=== PATIENT | female | born 1940 | race Asian ===

== ENCOUNTER 2016-04-27 00:16 | Inpatient (IN) | payer MEDICARE, OTHER ==
[~2016-04-27] VITALS: Ht 152.4 cm; Wt 61.5 kg
[~2016-04-27 00:16] MED LIST: CEPH500 PO; DILT120C3 PO; DSS100 PO; GLIM2 PO; LOVA20 PO; MECL-129 PO; METF500T4 PO; RIVA15T PO; VALS80TA2 PO
[2016-04-27] MEDS ORDERED: METO-323 PO (00:22)
[2016-04-27] MEDS ORDERED: GLIM2 PO (00:22)
[2016-04-27] MEDS ORDERED: OMEP20 PO (00:22)
[2016-04-27] MEDS ORDERED: SITA1TBM4 PO (00:22)
[2016-04-27 00:32] LABS: GLUCOSE,POINT OF CARE 244 MG/DL (70-110)
[2016-04-27 00:40] LABS: BASOPHILS # (AUTO) 0.05 K/uL (0.00-0.20); BASOPHILS % (AUTO) 0.3 % (0.0-2.0); EOSINOPHILS # (AUTO) 0.15 K/uL (0.00-0.70); EOSINOPHILS % (AUTO) 1.04 % (1.0-6.0); HEMATOCRIT 45.4 % (36-46); HEMOGLOBIN 14.5 g/dL (12.0-16.0); LYMPHOCYTES # (AUTO) 3.6 K/uL (1.0-4.8); LYMPHOCYTES % (AUTO) 24.3 % (22.0-44.0); MEAN CORPUSCULAR HEMOGLOBIN 29.9 pg (26.0-34.0); MEAN CORPUSCULAR HGB CONC 31.9 G/dL (31.0-37.0); MEAN CORPUSCULAR VOLUME 94 fL (80-100); MONOCYTES # (AUTO) 0.8 K/uL (0.1-1.0); MONOCYTES % (AUTO) 5.1 % (2.0-9.0); NEUTROPHILS # (AUTO) 10.3 K/uL (1.8-7.7); NEUTROPHILS % (AUTO) 69.3 % (40.0-70.0); PLATELET COUNT (AUTO) 209 K/uL (150-450); RED BLOOD CELL COUNT(AUTO) 4.85 MIL/uL (4.00-5.20); RED CELL DISTRIBUTION WIDTH 14.6 % (11.5-14.5); WHITE BLOOD COUNT (AUTO) 14.9 K/uL (4.5-11.0)
[2016-04-27 00:49] LABS: ANION GAP 11 mmol/L (8-16); CALCIUM, TOTAL 8.9 mg/dL (8.8-10.5); CARBON DIOXIDE 26 mmol/L (22-29); CHLORIDE 100 mmol/L (98-107); CREATININE 1.03 mg/dL (0.60-1.30); GLOMERULAR FILTR. RATE CALC 52 mL/min (>60); POTASSIUM 3.9 mmol/L (3.5-5.1); SODIUM SERUM 137 mmol/L (136-145); UREA NITROGEN, BLOOD 15 mg/dL (7-18)
[2016-04-27 00:52] LABS: PROTHROMBIN TIME 10.8 SEC (9.4-11.6)
[2016-04-27 00:55] LABS: ALANINE AMINOTRANSFERASE 21 U/L (12-78); ALBUMIN 3.6 g/dL (3.4-5.0); ASPARTATE AMINOTRANSFERASE 13 U/L (15-37); BILIRUBIN,TOTAL 0.4 mg/dL (0.1-1.0); CREATINE KINASE, TOTAL 22 U/L (26-192); TOTAL PROTEIN, SERUM 7.7 g/dL (6.4-8.2)
[2016-04-27 01:24] LABS: B-TYPE NATRIURETIC PEPTIDE 211 pg/mL (0-100)
[2016-04-27] MEDS ORDERED: IPRATROPIUM BROMIDE 0.5 MG/2.5 ML NEB SOLUTION NEB ONE (04:15)
[2016-04-27] MEDS ORDERED: ALBUTEROL SULFATE 5 MG/ML 20 ML NEB SOLN [BULK] NEB ONE (04:15)
[2016-04-27 05:36] VITALS: BP 142/92
[2016-04-27] MEDS ORDERED: DILTIAZEM HCL 5 MG/ML 5 ML VIAL IVP ONE ×2 (05:45→08:30)
[2016-04-27] MEDS: NITROGLYCERIN 2% (1 GM=INCH) PACKET TP SCH ×3 (06:20→17:30)
[2016-04-27] MEDS ORDERED: DEXTROSE 50%-WATER 25 GM/50 ML SYRINGE IVP PRN (06:30)
[2016-04-27] MEDS: IBUPROFEN 600 MG TABLET PO PRN (06:52)
[2016-04-27] MEDS: INSULIN ASPART 100 UNITS/ML SQ PRN ×4 (07:00→22:00)
[2016-04-27 07:50] VITALS: BP 127/70
[2016-04-27] MEDS ORDERED: AMIODARONE HCL 150 MG in DEXTROSE 5%-WATER 97 ML IV ONE (08:50)
[2016-04-27] MEDS ORDERED: AMIODARONE HCL 360 MG in DEXTROSE 5%-WATER 242.8 ML IV ONE (09:00)
[2016-04-27] MEDS ORDERED: ONDANSETRON HCL 4 MG/2 ML VIAL IVP PRN (09:15)
[2016-04-27] MEDS ORDERED: 0.9% SODIUM CHLORIDE 10 ML SYRINGE IVP PRN ×2 (09:15)
[2016-04-27] MEDS ORDERED: ZOLPIDEM TARTRATE 5 MG TABLET PO PRN (09:15)
[2016-04-27] MEDS ORDERED: SODIUM CHLORIDE 0.9% 250 ML IV ONE (10:37)
[2016-04-27] MEDS: INSULIN GLARGINE,HUM.REC.ANLOG 100 UNITS/ML SQ SCH (10:55)
[2016-04-27 11:17] VITALS: BP 108/76
[2016-04-27 11:46] LABS: GLUCOSE COMMENT 1 Received Meds; GLUCOSE,POINT OF CARE 250 MG/DL (70-110)
[2016-04-27] MEDS ORDERED: DIGOXIN 250 MCG/ML 2 ML AMP IVP ONE (12:00)
[2016-04-27] MEDS: DIGOXIN 250 MCG/ML 2 ML AMP IVP SCH ×2 (12:11→17:29)
[2016-04-27] MEDS: CefTRIAXone 1 GM/DEXTROSE 50 ML IV SCH (14:28)
[2016-04-27] MEDS: MethylPREDNISolone SOD SUCC 125 MG/2 ML VIAL IVP SCH ×2 (14:36→19:04)
[2016-04-27] MEDS ORDERED: AMIODARONE HCL 540 MG in DEXTROSE 5%-WATER 239.2 ML IV ONE (15:00)
[2016-04-27 15:53] VITALS: BP 111/75
[2016-04-27] MEDS ORDERED: HEPARIN SODIUM,PORCINE 5,000 UNITS/ML VIAL IVP PRN (16:00)
[2016-04-27] MEDS: DOCUSATE SODIUM 250 MG CAPSULE PO SCH ×2 (16:06→21:24)
[2016-04-27] MEDS: BUDESONIDE 0.5 MG/2 ML NEB SOLUTION NEB SCH ×2 (16:10→20:47)
[2016-04-27] MEDS: HEPARIN SODIUM,PORCINE 5,000 UNITS/ML VIAL IVP ONE ×2 (16:12→17:24)
[2016-04-27 16:13] LABS: BASOPHILS % (AUTO) 0.1 % (0.0-2.0); EOSINOPHILS % (AUTO) 0 % (1.0-6.0); HEMOGLOBIN 13.7 g/dL (12.0-16.0); LYMPHOCYTES # (AUTO) 0.6 K/uL (1.0-4.8); LYMPHOCYTES % (AUTO) 4.4 % (22.0-44.0); MEAN CORPUSCULAR HGB CONC 31.9 G/dL (31.0-37.0); MEAN CORPUSCULAR VOLUME 94 fL (80-100); MONOCYTES # (AUTO) 0.2 K/uL (0.1-1.0); MONOCYTES % (AUTO) 1.7 % (2.0-9.0); NEUTROPHILS # (AUTO) 13.2 K/uL (1.8-7.7); PLATELET COUNT (AUTO) 196 K/uL (150-450); RED BLOOD CELL COUNT(AUTO) 4.57 MIL/uL (4.00-5.20); RED CELL DISTRIBUTION WIDTH 14.5 % (11.5-14.5); WHITE BLOOD COUNT (AUTO) 14.1 K/uL (4.5-11.0)
[2016-04-27 16:17] LABS: NEUTROPHILS % (AUTO) 93.8 % (40.0-70.0)
[2016-04-27 16:27] LABS: PROTHROMBIN TIME 10.8 SEC (9.4-11.6)
[2016-04-27] MEDS ORDERED: LIDOCAINE HCL/PF 2% 5 ML VIAL IM ONE (16:44)
[2016-04-27] MEDS ORDERED: PROPOFOL 1% 20 ML VIAL IVP ONE (16:44)
[2016-04-27 17:22] LABS: GLUCOSE COMMENT 1 Received Meds; GLUCOSE,POINT OF CARE 248 MG/DL (70-110)
[2016-04-27] MEDS: HEPARIN SODIUM 25000 UNITS/D5W 250 ML IV PRN (17:24)
[2016-04-27] MEDS: GLIMEPIRIDE 2 MG TABLET PO SCH (17:30)
[2016-04-27] MEDS: VALSARTAN 80 MG TABLET PO SCH ×2 (18:45→19:03)
[2016-04-27] MEDS: HydrALAZINE HCL 20 MG/ML VIAL IVP PRN (19:03)
[2016-04-27] MEDS: METOPROLOL SUCCINATE 25 MG ER TABLET PO SCH ×2 (19:03→21:24)
[2016-04-27 20:22] VITALS: BP 181/103
[2016-04-27] MEDS ORDERED: BUDESONIDE 0.5 MG/2 ML NEB SOLUTION NEB SCH (21:00)
[2016-04-27] MEDS ORDERED: METOPROLOL SUCCINATE 25 MG ER TABLET PO SCH (21:00)
[2016-04-27] MEDS ORDERED: METOPROLOL TARTRATE 25 MG TABLET PO SCH (21:00)
[2016-04-27] MEDS: ATORVASTATIN CALCIUM 20 MG TABLET PO SCH (21:24)
[2016-04-27 22:28] VITALS: BP 154/88
[2016-04-28] VITALS (9 sets, daily range): BP systolic 107–170; BP diastolic 67–105
[2016-04-28] MEDS: DIGOXIN 250 MCG/ML 2 ML AMP IVP SCH (00:21)
[2016-04-28] MEDS: MethylPREDNISolone SOD SUCC 125 MG/2 ML VIAL IVP SCH ×5 (00:21→23:56)
[2016-04-28] MEDS: NITROGLYCERIN 2% (1 GM=INCH) PACKET TP SCH ×5 (00:22→23:56)
[2016-04-28] MEDS: HEPARIN SODIUM,PORCINE 5,000 UNITS/ML VIAL IVP PRN ×2 (01:14→17:30)
[2016-04-28] MEDS: HydrALAZINE HCL 20 MG/ML VIAL IVP PRN (01:14)
[2016-04-28 03:06] LABS: GLUCOSE COMMENT 1 Received Meds; GLUCOSE,POINT OF CARE 311 MG/DL (70-110)
[2016-04-28 06:36] LABS: GLUCOSE COMMENT 1 Received Meds; GLUCOSE,POINT OF CARE 272 MG/DL (70-110)
[2016-04-28] MEDS: INSULIN ASPART 100 UNITS/ML SQ PRN ×4 (06:37→21:16)
[2016-04-28] MEDS: IBUPROFEN 600 MG TABLET PO PRN (06:45)
[2016-04-28 08:23] LABS: EOSINOPHILS % (AUTO) 0 % (1.0-6.0); HEMATOCRIT 43.3 % (36-46); LYMPHOCYTES # (AUTO) 1.8 K/uL (1.0-4.8); LYMPHOCYTES % (AUTO) 9.1 % (22.0-44.0); MEAN CORPUSCULAR HGB CONC 32.3 G/dL (31.0-37.0); MEAN CORPUSCULAR VOLUME 93 fL (80-100); MONOCYTES # (AUTO) 0.3 K/uL (0.1-1.0); MONOCYTES % (AUTO) 1.4 % (2.0-9.0); NEUTROPHILS # (AUTO) 17.6 K/uL (1.8-7.7); PLATELET COUNT (AUTO) 213 K/uL (150-450); RED BLOOD CELL COUNT(AUTO) 4.66 MIL/uL (4.00-5.20); RED CELL DISTRIBUTION WIDTH 14.4 % (11.5-14.5); WHITE BLOOD COUNT (AUTO) 19.7 K/uL (4.5-11.0)
[2016-04-28 08:24] LABS: NEUTROPHILS % (AUTO) 89.5 % (40.0-70.0)
[2016-04-28 08:33] LABS: INR 1.1 (0.9-1.1); PROTHROMBIN TIME 11.2 SEC (9.4-11.6)
[2016-04-28 08:41] LABS: HEMOGLOBIN A1C 9.3 % (4.5-6.2)
[2016-04-28 08:43] LABS: RBC MORPHOLOGY COMMENT NORMAL RBC MORPH
[2016-04-28 08:45] LABS: CHOL/HDL RATIO 3.7 (3.9-5.7); THYROID STIMULATING HORMONE 0.37 uIU/mL (0.36-3.74)
[2016-04-28 08:52] LABS: ABG A-A DIFF O2 296.9 mmHg (10-20.0); ABG BASE EXCESS -3.7 mmol/L (-2.0-3.0); ABG OXYHEMOGLOBIN 96.3 % (94.0-100.0); ABG PCO2 35 mmHg (35-45); ABG PH 7.397 (7.35-7.450); ALLEN TEST, BLOOD GAS Positive; IPAP, BG 14 cm H2O; TEMPERATURE, FAHRENHEIT, BG 98.6 FAHREN (96.0-98.6)
[2016-04-28] MEDS ORDERED: AMIODARONE HCL 750 MG in DEXTROSE 5%-WATER 485 ML IV SCH (09:00)
[2016-04-28] MEDS: DOCUSATE SODIUM 250 MG CAPSULE PO SCH ×3 (09:00→20:36)
[2016-04-28] MEDS: BUDESONIDE 0.5 MG/2 ML NEB SOLUTION NEB SCH ×3 (09:50→21:19)
[2016-04-28] MEDS: HEPARIN SODIUM 25000 UNITS/D5W 250 ML IV PRN ×2 (10:05→17:25)
[2016-04-28] MEDS: INSULIN GLARGINE,HUM.REC.ANLOG 100 UNITS/ML SQ SCH (10:08)
[2016-04-28] MEDS ORDERED: AZITHROMYCIN 500 MG/NS 250 ML IV SCH (11:00)
[2016-04-28 11:21] LABS: GLUCOSE COMMENT 1 Received Meds; GLUCOSE,POINT OF CARE 193 MG/DL (70-110)
[2016-04-28] MEDS: LISINOPRIL 5 MG TABLET PO SCH (11:46)
[2016-04-28] MEDS: METOPROLOL SUCCINATE 25 MG ER TABLET PO SCH ×2 (11:46→20:36)
[2016-04-28] MEDS: GLIMEPIRIDE 2 MG TABLET PO SCH ×2 (11:46→17:40)
[2016-04-28] MEDS: VALSARTAN 80 MG TABLET PO SCH (11:46)
[2016-04-28] MEDS: CefTRIAXone 1 GM/DEXTROSE 50 ML IV SCH (11:47)
[2016-04-28 14:46] LABS: GLUCOSE,BODY FLUID 221 mg/dL; LDH,BODY FLUID 54 U/L
[2016-04-28 15:01] LABS: APPEARANCE,UNSPUN,BODY FLUID HAZY (CLEAR); COLOR,BODY FLUID LT YELLOW (LT YELLOW)
[2016-04-28] MEDS: ATORVASTATIN CALCIUM 20 MG TABLET PO SCH (20:36)
[2016-04-28 21:07] LABS: GLUCOSE COMMENT 1 Received Meds; GLUCOSE,POINT OF CARE 217 MG/DL (70-110)
[2016-04-29 00:09] VITALS: BP 130/75
[2016-04-29 03:14] VITALS: BP 130/77
[2016-04-29] MEDS ORDERED: DIGOXIN 250 MCG/ML 2 ML AMP IVP ONE ×2 (03:45→10:15)
[2016-04-29] MEDS ORDERED: AMIODARONE HCL 360 MG in DEXTROSE 5%-WATER 242.8 ML IV ONE (03:45)
[2016-04-29] MEDS ORDERED: AMIODARONE HCL 150 MG in DEXTROSE 5%-WATER 97 ML IV ONE (03:45)
[2016-04-29 05:01] LABS: INFLUENZA TYPE B NEGATIVE FOR TYPE B (NEGATIVE)
[2016-04-29] MEDS: MethylPREDNISolone SOD SUCC 125 MG/2 ML VIAL IVP SCH ×3 (06:07→17:42)
[2016-04-29] MEDS: NITROGLYCERIN 2% (1 GM=INCH) PACKET TP SCH ×3 (06:08→17:42)
[2016-04-29] MEDS: INSULIN ASPART 100 UNITS/ML SQ PRN ×4 (06:15→22:01)
[2016-04-29 07:38] VITALS: BP 118/63
[2016-04-29] MEDS: VALSARTAN 80 MG TABLET PO SCH (08:08)
[2016-04-29] MEDS: GLIMEPIRIDE 2 MG TABLET PO SCH ×2 (08:09→17:41)
[2016-04-29] MEDS: METOPROLOL SUCCINATE 25 MG ER TABLET PO SCH ×2 (08:09→20:16)
[2016-04-29] MEDS: LISINOPRIL 5 MG TABLET PO SCH (08:09)
[2016-04-29] MEDS: DOCUSATE SODIUM 250 MG CAPSULE PO SCH ×3 (08:09→20:20)
[2016-04-29] MEDS: INSULIN GLARGINE,HUM.REC.ANLOG 100 UNITS/ML SQ SCH (08:12)
[2016-04-29 08:26] LABS: GLUCOSE,POINT OF CARE 233 MG/DL (70-110)
[2016-04-29 08:35] LABS: APPEARANCE,URINE CLEAR (CLEAR); GLUCOSE, URINE (UA) NEGATIVE (NEGATIVE); KETONES,URINE NEGATIVE (NEGATIVE); LEUKOCYTE ESTERASE ,URINE NEGATIVE (NEGATIVE); OCCULT BLOOD,URINE NEGATIVE (NEGATIVE); PROTEIN,URINE TRACE (NEGATIVE)
[2016-04-29 08:37] LABS: ADD UA MICROSCOPIC NO
[2016-04-29 08:40] LABS: TOTAL PROTEIN, SERUM 6.9 g/dL (6.4-8.2)
[2016-04-29 08:50] LABS: CREATININE 1.04 mg/dL (0.60-1.30)
[2016-04-29 09:04] LABS: ALBUMIN 3.2 g/dL (3.4-5.0); BILIRUBIN,TOTAL 0.6 mg/dL (0.1-1.0); CALCIUM, TOTAL 8.9 mg/dL (8.8-10.5); POTASSIUM 3.7 mmol/L (3.5-5.1); TOTAL PROTEIN, SERUM 6.9 g/dL (6.4-8.2)
[2016-04-29 09:11] LABS: PROCALCITONIN (PCT) 0.18 ng/mL (<0.50)
[2016-04-29] MEDS: BUDESONIDE 0.5 MG/2 ML NEB SOLUTION NEB SCH ×3 (09:29→20:42)
[2016-04-29] MEDS ORDERED: AMIODARONE HCL 540 MG in DEXTROSE 5%-WATER 239.2 ML IV ONE (09:45)
[2016-04-29] MEDS ORDERED: SODIUM CHLORIDE 0.9% 250 ML IV ONE (10:42)
[2016-04-29] MEDS: CHOLECALCIFEROL (VIT D3) 2,000 UNITS TABLET PO SCH (10:44)
[2016-04-29] MEDS: DOXYCYCLINE 100 MG in DEXTROSE 5%-WATER 100 ML IV SCH ×2 (10:44→20:23)
[2016-04-29 11:03] VITALS: BP 134/68
[2016-04-29 11:16] LABS: GLUCOSE COMMENT 1 Received Meds; GLUCOSE,POINT OF CARE 207 MG/DL (70-110)
[2016-04-29] MEDS ORDERED: *CLINICAL-RX DOSING [ENTER DRUG IN COMMENTS] CLINICAL ONE (11:30)
[2016-04-29] MEDS: CefTRIAXone 1 GM/DEXTROSE 50 ML IV SCH (12:24)
[2016-04-29] MEDS: RIVAROXABAN 15 MG TABLET PO SCH (13:56)
[2016-04-29] MEDS ORDERED: METOPROLOL SUCCINATE 25 MG ER TABLET PO ONE (14:00)
[2016-04-29 15:11] VITALS: BP 135/97
[2016-04-29] MEDS ORDERED: RIVAROXABAN 15 MG TABLET PO SCH (17:00)
[2016-04-29 19:21] VITALS: BP 133/70
[2016-04-29] MEDS: ATORVASTATIN CALCIUM 20 MG TABLET PO SCH (20:16)
[2016-04-29 20:31] LABS: GLUCOSE COMMENT 1 Received Meds; GLUCOSE,POINT OF CARE 205 MG/DL (70-110)
[2016-04-29 20:36] LABS: GLUCOSE COMMENT 1 Received Meds; GLUCOSE,POINT OF CARE 243 MG/DL (70-110)
[2016-04-30] VITALS (7 sets, daily range): BP systolic 108–140; BP diastolic 63–90
[2016-04-30] MEDS: MethylPREDNISolone SOD SUCC 125 MG/2 ML VIAL IVP SCH ×4 (00:12→17:46)
[2016-04-30] MEDS: NITROGLYCERIN 2% (1 GM=INCH) PACKET TP SCH ×4 (00:14→17:46)
[2016-04-30] MEDS ORDERED: AMIODARONE HCL 750 MG in DEXTROSE 5%-WATER 485 ML IV SCH (03:35)
[2016-04-30] MEDS: INSULIN ASPART 100 UNITS/ML SQ PRN ×4 (06:20→21:28)
[2016-04-30 07:03] LABS: EOSINOPHILS % (AUTO) 0 % (1.0-6.0); HEMATOCRIT 36.7 % (36-46); HEMOGLOBIN 11.8 g/dL (12.0-16.0); LYMPHOCYTES # (AUTO) 0.8 K/uL (1.0-4.8); LYMPHOCYTES % (AUTO) 4.3 % (22.0-44.0); MEAN CORPUSCULAR HEMOGLOBIN 30.3 pg (26.0-34.0); MEAN CORPUSCULAR HGB CONC 32.2 G/dL (31.0-37.0); MEAN CORPUSCULAR VOLUME 94 fL (80-100); MONOCYTES # (AUTO) 0.5 K/uL (0.1-1.0); MONOCYTES % (AUTO) 2.6 % (2.0-9.0); NEUTROPHILS # (AUTO) 17.4 K/uL (1.8-7.7); PLATELET COUNT (AUTO) 180 K/uL (150-450); RED CELL DISTRIBUTION WIDTH 14.6 % (11.5-14.5); WHITE BLOOD COUNT (AUTO) 18.7 K/uL (4.5-11.0)
[2016-04-30 07:16] LABS: GLUCOSE COMMENT 1 Received Meds; GLUCOSE,POINT OF CARE 231 MG/DL (70-110)
[2016-04-30 07:20] LABS: NEUTROPHILS % (AUTO) 93.1 % (40.0-70.0)
[2016-04-30 07:20] LABS: GLUCOSE COMMENT 1 Received Meds; GLUCOSE,POINT OF CARE 310 MG/DL (70-110)
[2016-04-30 07:30] LABS: ALANINE AMINOTRANSFERASE 23 U/L (12-78); ALBUMIN 2.9 g/dL (3.4-5.0); ANION GAP 7 mmol/L (8-16); ASPARTATE AMINOTRANSFERASE 13 U/L (15-37); BILIRUBIN,TOTAL 0.3 mg/dL (0.1-1.0); CALCIUM, TOTAL 8.5 mg/dL (8.8-10.5); CARBON DIOXIDE 27 mmol/L (22-29); CHLORIDE 104 mmol/L (98-107); CREATININE 0.82 mg/dL (0.60-1.30); GLOMERULAR FILTR. RATE CALC > 60 mL/min (>60); POTASSIUM 3.9 mmol/L (3.5-5.1); SODIUM SERUM 138 mmol/L (136-145); UREA NITROGEN, BLOOD 40 mg/dL (7-18)
[2016-04-30 07:31] LABS: GLUCOSE COMMENT 1 Received Meds; GLUCOSE,POINT OF CARE 191 MG/DL (70-110)
[2016-04-30] MEDS: GLIMEPIRIDE 2 MG TABLET PO SCH ×2 (08:08→17:46)
[2016-04-30] MEDS: DOCUSATE SODIUM 250 MG CAPSULE PO SCH ×4 (08:09→21:07)
[2016-04-30] MEDS: VALSARTAN 80 MG TABLET PO SCH (08:09)
[2016-04-30] MEDS: DOXYCYCLINE 100 MG in DEXTROSE 5%-WATER 100 ML IV SCH ×2 (08:09→21:07)
[2016-04-30] MEDS: DIGOXIN 125 MCG TABLET PO SCH (08:09)
[2016-04-30] MEDS: LISINOPRIL 5 MG TABLET PO SCH (08:10)
[2016-04-30] MEDS: METOPROLOL SUCCINATE 25 MG ER TABLET PO SCH ×2 (08:10→21:07)
[2016-04-30] MEDS: CHOLECALCIFEROL (VIT D3) 2,000 UNITS TABLET PO SCH (08:10)
[2016-04-30] MEDS: INSULIN GLARGINE,HUM.REC.ANLOG 100 UNITS/ML SQ SCH (08:27)
[2016-04-30 08:29] LABS: RBC MORPHOLOGY COMMENT NORMAL RBC MORPH
[2016-04-30] MEDS: BUDESONIDE 0.5 MG/2 ML NEB SOLUTION NEB SCH ×3 (09:51→20:09)
[2016-04-30] MEDS: CefTRIAXone 1 GM/DEXTROSE 50 ML IV SCH (10:31)
[2016-04-30] MEDS ORDERED: FUROSEMIDE 20 MG/2 ML VIAL IVP ONE (10:45)
[2016-04-30 12:32] LABS: HEPATITIS Bs ANTIGEN SCREEN P Positive (Negative)
[2016-04-30 15:35] LABS: EOSINOPHILS % (AUTO) 0 % (1.0-6.0); HEMOGLOBIN 11.7 g/dL (12.0-16.0); LYMPHOCYTES # (AUTO) 0.8 K/uL (1.0-4.8); LYMPHOCYTES % (AUTO) 4.1 % (22.0-44.0); MEAN CORPUSCULAR HGB CONC 31.7 G/dL (31.0-37.0); MEAN CORPUSCULAR VOLUME 94 fL (80-100); MONOCYTES # (AUTO) 0.6 K/uL (0.1-1.0); MONOCYTES % (AUTO) 3.4 % (2.0-9.0); NEUTROPHILS # (AUTO) 17.7 K/uL (1.8-7.7); PLATELET COUNT (AUTO) 184 K/uL (150-450); RED BLOOD CELL COUNT(AUTO) 3.92 MIL/uL (4.00-5.20); RED CELL DISTRIBUTION WIDTH 15.1 % (11.5-14.5); WHITE BLOOD COUNT (AUTO) 19.1 K/uL (4.5-11.0)
[2016-04-30 15:37] LABS: NEUTROPHILS % (AUTO) 92.5 % (40.0-70.0)
[2016-04-30] MEDS: RIVAROXABAN 15 MG TABLET PO SCH (15:38)
[2016-04-30 15:46] LABS: INR 1.1 (0.9-1.1)
[2016-04-30] MEDS: PANTOPRAZOLE SODIUM 40 MG/VIAL IVP SCH (21:07)
[2016-04-30] MEDS: ATORVASTATIN CALCIUM 20 MG TABLET PO SCH (21:07)
[2016-05-01] VITALS (10 sets, daily range): BP systolic 112–144; BP diastolic 63–78
[2016-05-01] MEDS: NITROGLYCERIN 2% (1 GM=INCH) PACKET TP SCH ×4 (00:48→17:38)
[2016-05-01] MEDS: MethylPREDNISolone SOD SUCC 125 MG/2 ML VIAL IVP SCH ×4 (00:48→17:38)
[2016-05-01] MEDS: GLIMEPIRIDE 2 MG TABLET PO SCH ×2 (08:00→17:38)
[2016-05-01] MEDS: DOXYCYCLINE 100 MG in DEXTROSE 5%-WATER 100 ML IV SCH ×2 (08:01→21:22)
[2016-05-01 08:09] LABS: BASOPHILS # (AUTO) 0.06 K/uL (0.00-0.20); BASOPHILS % (AUTO) 0.4 % (0.0-2.0); EOSINOPHILS % (AUTO) 0 % (1.0-6.0); HEMATOCRIT 35.6 % (36-46); HEMOGLOBIN 11.9 g/dL (12.0-16.0); LYMPHOCYTES # (AUTO) 1.3 K/uL (1.0-4.8); LYMPHOCYTES % (AUTO) 8.3 % (22.0-44.0); MEAN CORPUSCULAR HEMOGLOBIN 30.6 pg (26.0-34.0); MEAN CORPUSCULAR HGB CONC 33.4 G/dL (31.0-37.0); MEAN CORPUSCULAR VOLUME 92 fL (80-100); MONOCYTES # (AUTO) 0.3 K/uL (0.1-1.0); MONOCYTES % (AUTO) 2.1 % (2.0-9.0); NEUTROPHILS # (AUTO) 13.9 K/uL (1.8-7.7); PLATELET COUNT (AUTO) 183 K/uL (150-450); RED BLOOD CELL COUNT(AUTO) 3.88 MIL/uL (4.00-5.20); RED CELL DISTRIBUTION WIDTH 15.1 % (11.5-14.5); WHITE BLOOD COUNT (AUTO) 15.5 K/uL (4.5-11.0)
[2016-05-01] MEDS: BUDESONIDE 0.5 MG/2 ML NEB SOLUTION NEB SCH ×3 (08:09→21:00)
[2016-05-01 08:16] LABS: NEUTROPHILS % (AUTO) 89.3 % (40.0-70.0)
[2016-05-01 08:36] LABS: ALANINE AMINOTRANSFERASE 23 U/L (12-78); ALBUMIN 2.7 g/dL (3.4-5.0); ANION GAP 8 mmol/L (8-16); ASPARTATE AMINOTRANSFERASE 14 U/L (15-37); BILIRUBIN,TOTAL 0.5 mg/dL (0.1-1.0); CALCIUM, TOTAL 8.5 mg/dL (8.8-10.5); CARBON DIOXIDE 28 mmol/L (22-29); CHLORIDE 102 mmol/L (98-107); CREATININE 0.88 mg/dL (0.60-1.30); GLOMERULAR FILTR. RATE CALC > 60 mL/min (>60); POTASSIUM 3.9 mmol/L (3.5-5.1); SODIUM SERUM 138 mmol/L (136-145); TOTAL PROTEIN, SERUM 5.8 g/dL (6.4-8.2); UREA NITROGEN, BLOOD 40 mg/dL (7-18)
[2016-05-01] MEDS: DOCUSATE SODIUM 250 MG CAPSULE PO SCH ×3 (09:00→21:00)
[2016-05-01] MEDS: INSULIN GLARGINE,HUM.REC.ANLOG 100 UNITS/ML SQ SCH (09:00)
[2016-05-01] MEDS ORDERED: SODIUM CHLORIDE 0.9% 1,000 ML IV ONE (09:10)
[2016-05-01] MEDS: PANTOPRAZOLE SODIUM 40 MG/VIAL IVP SCH (09:28)
[2016-05-01] MEDS: CefTRIAXone 1 GM/DEXTROSE 50 ML IV SCH (11:01)
[2016-05-01] MEDS: INSULIN ASPART 100 UNITS/ML SQ PRN ×3 (11:50→21:47)
[2016-05-01] MEDS: FLUCONAZOLE 100 MG TABLET PO SCH (11:54)
[2016-05-01] MEDS: VALSARTAN 80 MG TABLET PO SCH (11:54)
[2016-05-01] MEDS: CHOLECALCIFEROL (VIT D3) 2,000 UNITS TABLET PO SCH (11:55)
[2016-05-01] MEDS: LISINOPRIL 5 MG TABLET PO SCH (11:55)
[2016-05-01] MEDS: METOPROLOL SUCCINATE 25 MG ER TABLET PO SCH ×2 (11:55→21:22)
[2016-05-01] MEDS: DIGOXIN 125 MCG TABLET PO SCH (11:55)
[2016-05-01] MEDS: PANTOPRAZOLE SODIUM 80 MG in SODIUM CHLORIDE 0.9% 500 ML IV SCH ×2 (12:00→21:21)
[2016-05-01 20:17] LABS: GLUCOSE COMMENT 1 Received Meds; GLUCOSE,POINT OF CARE 269 MG/DL (70-110)
[2016-05-01] MEDS: ATORVASTATIN CALCIUM 20 MG TABLET PO SCH (21:22)
[2016-05-02] MEDS: MethylPREDNISolone SOD SUCC 125 MG/2 ML VIAL IVP SCH ×5 (01:03→17:53)
[2016-05-02] MEDS: NITROGLYCERIN 2% (1 GM=INCH) PACKET TP SCH ×4 (01:03→17:31)
[2016-05-02 04:53] VITALS: BP 112/60
[2016-05-02] MEDS: PANTOPRAZOLE SODIUM 80 MG in SODIUM CHLORIDE 0.9% 500 ML IV SCH ×2 (06:09→16:27)
[2016-05-02 07:01] LABS: EOSINOPHILS % (AUTO) 0 % (1.0-6.0); HEMATOCRIT 33.3 % (36-46); HEMOGLOBIN 10.9 g/dL (12.0-16.0); LYMPHOCYTES # (AUTO) 0.9 K/uL (1.0-4.8); LYMPHOCYTES % (AUTO) 7.8 % (22.0-44.0); MEAN CORPUSCULAR HEMOGLOBIN 30.6 pg (26.0-34.0); MEAN CORPUSCULAR HGB CONC 32.8 G/dL (31.0-37.0); MEAN CORPUSCULAR VOLUME 93 fL (80-100); MONOCYTES # (AUTO) 0.3 K/uL (0.1-1.0); MONOCYTES % (AUTO) 2.5 % (2.0-9.0); PLATELET COUNT (AUTO) 180 K/uL (150-450); RED BLOOD CELL COUNT(AUTO) 3.56 MIL/uL (4.00-5.20); RED CELL DISTRIBUTION WIDTH 14.8 % (11.5-14.5); WHITE BLOOD COUNT (AUTO) 11.1 K/uL (4.5-11.0)
[2016-05-02 07:06] LABS: NEUTROPHILS % (AUTO) 89.7 % (40.0-70.0)
[2016-05-02 07:18] LABS: ALANINE AMINOTRANSFERASE 26 U/L (12-78); ALBUMIN 2.6 g/dL (3.4-5.0); ANION GAP 9 mmol/L (8-16); ASPARTATE AMINOTRANSFERASE 17 U/L (15-37); BILIRUBIN,TOTAL 0.4 mg/dL (0.1-1.0); CALCIUM, TOTAL 8.1 mg/dL (8.8-10.5); CARBON DIOXIDE 27 mmol/L (22-29); CHLORIDE 108 mmol/L (98-107); CREATININE 0.84 mg/dL (0.60-1.30); GLOMERULAR FILTR. RATE CALC > 60 mL/min (>60); SODIUM SERUM 144 mmol/L (136-145); TOTAL PROTEIN, SERUM 5.4 g/dL (6.4-8.2); UREA NITROGEN, BLOOD 33 mg/dL (7-18)
[2016-05-02 07:32] VITALS: BP 129/69
[2016-05-02] MEDS: DOXYCYCLINE 100 MG in DEXTROSE 5%-WATER 100 ML IV SCH ×2 (08:40→20:51)
[2016-05-02] MEDS: VALSARTAN 80 MG TABLET PO SCH (08:48)
[2016-05-02] MEDS: FLUCONAZOLE 100 MG TABLET PO SCH (08:48)
[2016-05-02] MEDS: GLIMEPIRIDE 2 MG TABLET PO SCH ×2 (08:48→17:31)
[2016-05-02] MEDS: LISINOPRIL 5 MG TABLET PO SCH (08:49)
[2016-05-02] MEDS: DIGOXIN 125 MCG TABLET PO SCH (08:49)
[2016-05-02] MEDS: METOPROLOL SUCCINATE 25 MG ER TABLET PO SCH ×2 (08:49→20:58)
[2016-05-02] MEDS: CHOLECALCIFEROL (VIT D3) 2,000 UNITS TABLET PO SCH (08:49)
[2016-05-02] MEDS: DOCUSATE SODIUM 250 MG CAPSULE PO SCH ×3 (08:49→20:58)
[2016-05-02 08:58] LABS: HBV DNA QNT IU/ML 110 IU/mL
[2016-05-02] MEDS: INSULIN GLARGINE,HUM.REC.ANLOG 100 UNITS/ML SQ SCH (09:34)
[2016-05-02] MEDS: BUDESONIDE 0.5 MG/2 ML NEB SOLUTION NEB SCH ×2 (09:45→14:56)
[2016-05-02 09:56] LABS: GLUCOSE COMMENT 1 Received Meds; GLUCOSE,POINT OF CARE 157 MG/DL (70-110)
[2016-05-02] MEDS: CefTRIAXone 1 GM/DEXTROSE 50 ML IV SCH (10:29)
[2016-05-02 11:17] VITALS: BP 122/72
[2016-05-02] MEDS: INSULIN ASPART 100 UNITS/ML SQ PRN ×3 (11:59→20:56)
[2016-05-02] MEDS ORDERED: FUROSEMIDE 20 MG/2 ML VIAL IVP ONE (12:30)
[2016-05-02 13:01] LABS: B-TYPE NATRIURETIC PEPTIDE 245 pg/mL (0-100)
[2016-05-02 13:16] LABS: GLUCOSE COMMENT 1 Received Meds; GLUCOSE,POINT OF CARE 176 MG/DL (70-110)
[2016-05-02 13:16] LABS: GLUCOSE COMMENT 1 Received Meds; GLUCOSE,POINT OF CARE 176 MG/DL (70-110)
[2016-05-02 15:54] VITALS: BP 122/71
[2016-05-02 15:56] LABS: GLUCOSE COMMENT 1 Received Meds; GLUCOSE,POINT OF CARE 187 MG/DL (70-110)
[2016-05-02 15:56] LABS: GLUCOSE,POINT OF CARE 152 MG/DL (70-110)
[2016-05-02 15:56] LABS: GLUCOSE COMMENT 1 Received Meds; GLUCOSE,POINT OF CARE 152 MG/DL (70-110)
[2016-05-02 16:21] LABS: GLUCOSE,POINT OF CARE 116 MG/DL (70-110)
[2016-05-02 20:07] VITALS: BP 114/57
[2016-05-02] MEDS: BUDESONIDE/FORMOTEROL FUMARATE 160-4.5 MCG/PUFF 6.9 GM INHALER IH SCH (20:51)
[2016-05-02] MEDS: ATORVASTATIN CALCIUM 20 MG TABLET PO SCH (20:51)
[2016-05-02] MEDS ORDERED: SODIUM CHLORIDE 0.9% 500 ML IV ONE (21:01)
[2016-05-02 23:47] VITALS: BP 117/69
[2016-05-03] MEDS: MethylPREDNISolone SOD SUCC 125 MG/2 ML VIAL IVP SCH ×2 (00:59→06:31)
[2016-05-03] MEDS: NITROGLYCERIN 2% (1 GM=INCH) PACKET TP SCH ×5 (00:59→23:00)
[2016-05-03] MEDS: PANTOPRAZOLE SODIUM 80 MG in SODIUM CHLORIDE 0.9% 500 ML IV SCH ×3 (01:44→23:00)
[2016-05-03 05:01] VITALS: BP 134/87
[2016-05-03] MEDS: INSULIN ASPART 100 UNITS/ML SQ PRN ×4 (06:36→21:00)
[2016-05-03 07:47] LABS: ALANINE AMINOTRANSFERASE 35 U/L (12-78); ALBUMIN 2.6 g/dL (3.4-5.0); ANION GAP 8 mmol/L (8-16); ASPARTATE AMINOTRANSFERASE 19 U/L (15-37); BILIRUBIN,TOTAL 0.4 mg/dL (0.1-1.0); CALCIUM, TOTAL 8.1 mg/dL (8.8-10.5); CARBON DIOXIDE 26 mmol/L (22-29); CHLORIDE 106 mmol/L (98-107); CREATININE 0.79 mg/dL (0.60-1.30); GLOMERULAR FILTR. RATE CALC > 60 mL/min (>60); POTASSIUM 3.8 mmol/L (3.5-5.1); SODIUM SERUM 140 mmol/L (136-145); TOTAL PROTEIN, SERUM 5.3 g/dL (6.4-8.2); UREA NITROGEN, BLOOD 31 mg/dL (7-18)
[2016-05-03 07:49] LABS: B-TYPE NATRIURETIC PEPTIDE 393 pg/mL (0-100)
[2016-05-03 08:23] VITALS: BP 135/70
[2016-05-03] MEDS: GLIMEPIRIDE 2 MG TABLET PO SCH ×2 (08:24→18:24)
[2016-05-03] MEDS: FLUCONAZOLE 100 MG TABLET PO SCH (08:25)
[2016-05-03] MEDS: BUDESONIDE/FORMOTEROL FUMARATE 160-4.5 MCG/PUFF 6.9 GM INHALER IH SCH ×2 (08:25→20:17)
[2016-05-03] MEDS: CHOLECALCIFEROL (VIT D3) 2,000 UNITS TABLET PO SCH (08:25)
[2016-05-03] MEDS: DIGOXIN 125 MCG TABLET PO SCH (08:25)
[2016-05-03] MEDS: PredniSONE 10 MG TABLET PO SCH (08:26)
[2016-05-03] MEDS: LISINOPRIL 5 MG TABLET PO SCH (08:26)
[2016-05-03] MEDS: VALSARTAN 80 MG TABLET PO SCH (08:26)
[2016-05-03] MEDS: METOPROLOL SUCCINATE 25 MG ER TABLET PO SCH ×2 (08:26→20:18)
[2016-05-03] MEDS: DOCUSATE SODIUM 250 MG CAPSULE PO SCH ×3 (09:00→20:17)
[2016-05-03] MEDS: DOXYCYCLINE 100 MG in DEXTROSE 5%-WATER 100 ML IV SCH (09:07)
[2016-05-03] MEDS: INSULIN GLARGINE,HUM.REC.ANLOG 100 UNITS/ML SQ SCH (09:30)
[2016-05-03 10:59] VITALS: BP 142/64
[2016-05-03 11:09] LABS: ORGANISM ID Not indicated.
[2016-05-03 13:36] LABS: PH, BODY FLUID 7.5
[2016-05-03 13:59] LABS: GLUCOSE,BODY FLUID 199 mg/dL; LDH,BODY FLUID 46 U/L
[2016-05-03 14:26] LABS: APPEARANCE,UNSPUN,BODY FLUID HAZY (CLEAR); COLOR,BODY FLUID ORANGE (LT YELLOW)
[2016-05-03 16:16] VITALS: BP 134/70
[2016-05-03 19:42] VITALS: BP 133/71
[2016-05-03] MEDS: DOXYCYCLINE 100 MG CAPSULE PO SCH (20:17)
[2016-05-03] MEDS: ATORVASTATIN CALCIUM 20 MG TABLET PO SCH (20:18)
[2016-05-03 23:31] VITALS: BP 136/77
[2016-05-04 04:36] LABS: GLUCOSE COMMENT 1 Received Meds; GLUCOSE,POINT OF CARE 180 MG/DL (70-110)
[2016-05-04 04:36] LABS: GLUCOSE COMMENT 1 Received Meds; GLUCOSE,POINT OF CARE 220 MG/DL (70-110)
[2016-05-04 04:36] LABS: GLUCOSE COMMENT 1 Received Meds; GLUCOSE,POINT OF CARE 255 MG/DL (70-110)
[2016-05-04 04:36] LABS: GLUCOSE COMMENT 1 Received Meds; GLUCOSE,POINT OF CARE 191 MG/DL (70-110)
[2016-05-04 04:41] LABS: GLUCOSE COMMENT 1 Received Meds; GLUCOSE,POINT OF CARE 242 MG/DL (70-110)
[2016-05-04 04:56] VITALS: BP 136/77
[2016-05-04] MEDS: NITROGLYCERIN 2% (1 GM=INCH) PACKET TP SCH ×3 (05:37→16:56)
[2016-05-04 06:44] LABS: BASOPHILS # (AUTO) 0.06 K/uL (0.00-0.20); BASOPHILS % (AUTO) 0.4 % (0.0-2.0); EOSINOPHILS % (AUTO) 0.03 % (1.0-6.0); HEMATOCRIT 31.5 % (36-46); HEMOGLOBIN 10.6 g/dL (12.0-16.0); LYMPHOCYTES # (AUTO) 1.2 K/uL (1.0-4.8); LYMPHOCYTES % (AUTO) 6.7 % (22.0-44.0); MEAN CORPUSCULAR HEMOGLOBIN 30.9 pg (26.0-34.0); MEAN CORPUSCULAR HGB CONC 33.8 G/dL (31.0-37.0); MEAN CORPUSCULAR VOLUME 91 fL (80-100); MONOCYTES # (AUTO) 1.2 K/uL (0.1-1.0); MONOCYTES % (AUTO) 6.4 % (2.0-9.0); NEUTROPHILS # (AUTO) 15.6 K/uL (1.8-7.7); PLATELET COUNT (AUTO) 169 K/uL (150-450); RED BLOOD CELL COUNT(AUTO) 3.44 MIL/uL (4.00-5.20); RED CELL DISTRIBUTION WIDTH 14.9 % (11.5-14.5)
[2016-05-04 06:45] LABS: NEUTROPHILS % (AUTO) 86.5 % (40.0-70.0)
[2016-05-04 07:19] VITALS: BP 134/64
[2016-05-04 07:26] LABS: ANION GAP 7 mmol/L (8-16); CALCIUM, TOTAL 7.6 mg/dL (8.8-10.5); CARBON DIOXIDE 26 mmol/L (22-29); CHLORIDE 107 mmol/L (98-107); CREATININE 0.73 mg/dL (0.60-1.30); GLOMERULAR FILTR. RATE CALC > 60 mL/min (>60); POTASSIUM 3.8 mmol/L (3.5-5.1); SODIUM SERUM 140 mmol/L (136-145); UREA NITROGEN, BLOOD 27 mg/dL (7-18)
[2016-05-04 07:35] LABS: RBC MORPHOLOGY COMMENT ABNORMAL RBC MORPH
[2016-05-04 08:06] LABS: GLUCOSE,POINT OF CARE 121 MG/DL (70-110)
[2016-05-04 08:20] LABS: GLUCOSE,POINT OF CARE 138 MG/DL (70-110)
[2016-05-04 08:20] LABS: GLUCOSE,POINT OF CARE 128 MG/DL (70-110)
[2016-05-04] MEDS: PANTOPRAZOLE SODIUM 80 MG in SODIUM CHLORIDE 0.9% 500 ML IV SCH ×2 (08:33→18:22)
[2016-05-04] MEDS: GLIMEPIRIDE 2 MG TABLET PO SCH ×2 (08:33→16:55)
[2016-05-04] MEDS: BUDESONIDE/FORMOTEROL FUMARATE 160-4.5 MCG/PUFF 6.9 GM INHALER IH SCH (08:34)
[2016-05-04] MEDS: PredniSONE 10 MG TABLET PO SCH (08:34)
[2016-05-04] MEDS: DOCUSATE SODIUM 250 MG CAPSULE PO SCH ×3 (08:34→19:55)
[2016-05-04] MEDS: DOXYCYCLINE 100 MG CAPSULE PO SCH ×2 (08:35→19:55)
[2016-05-04] MEDS: VALSARTAN 80 MG TABLET PO SCH (08:35)
[2016-05-04] MEDS: FLUCONAZOLE 100 MG TABLET PO SCH (08:35)
[2016-05-04] MEDS: METOPROLOL SUCCINATE 25 MG ER TABLET PO SCH ×2 (09:00→21:00)
[2016-05-04] MEDS: INSULIN GLARGINE,HUM.REC.ANLOG 100 UNITS/ML SQ SCH (09:00)
[2016-05-04] MEDS: DIGOXIN 125 MCG TABLET PO SCH (09:00)
[2016-05-04] MEDS: LISINOPRIL 5 MG TABLET PO SCH (09:00)
[2016-05-04] MEDS: CHOLECALCIFEROL (VIT D3) 2,000 UNITS TABLET PO SCH (10:10)
[2016-05-04 10:13] LABS: ALANINE AMINOTRANSFERASE 35 U/L (12-78); ALBUMIN 2.4 g/dL (3.4-5.0); ASPARTATE AMINOTRANSFERASE 25 U/L (15-37); BILIRUBIN,TOTAL 0.4 mg/dL (0.1-1.0); DIGOXIN 0.75 ng/mL (0.90-2.00); TOTAL PROTEIN, SERUM 5.1 g/dL (6.4-8.2)
[2016-05-04 11:00] VITALS: BP 114/82
[2016-05-04] MEDS: INSULIN ASPART 100 UNITS/ML SQ PRN ×2 (12:22→17:39)
[2016-05-04 15:10] VITALS: BP 123/94
[2016-05-04 16:52] LABS: APPEARANCE,URINE CLEAR (CLEAR); GLUCOSE, URINE (UA) >=1000 mg/dL (NEGATIVE); KETONES,URINE NEGATIVE (NEGATIVE); LEUKOCYTE ESTERASE ,URINE NEGATIVE (NEGATIVE); OCCULT BLOOD,URINE NEGATIVE (NEGATIVE); PH,URINE 5.5 (5.0-8.0); PROTEIN,URINE TRACE (NEGATIVE)
[2016-05-04 16:54] LABS: ADD UA MICROSCOPIC YES
[2016-05-04 16:55] LABS: RBC,URINE 0-2 /HPF (0-2); SQUAMOUS EPITHELIAL CELL,UR Rare /LPF (None Seen); WBC,URINE 0-2 /HPF (0-5)
[2016-05-04] MEDS: ATORVASTATIN CALCIUM 20 MG TABLET PO SCH (19:55)
[2016-05-04 20:04] VITALS: BP 106/68
[2016-05-04 21:11] LABS: GLUCOSE COMMENT 1 Received Meds; GLUCOSE,POINT OF CARE 199 MG/DL (70-110)
[2016-05-04 21:16] LABS: GLUCOSE COMMENT 1 Received Meds; GLUCOSE,POINT OF CARE 332 MG/DL (70-110)
[2016-05-04 22:11] LABS: GLUCOSE COMMENT 1 Received Meds; GLUCOSE,POINT OF CARE 169 MG/DL (70-110)
[2016-05-04 22:16] LABS: GLUCOSE COMMENT 1 Received Meds; GLUCOSE,POINT OF CARE 155 MG/DL (70-110)
[2016-05-05] VITALS (7 sets, daily range): BP systolic 111–142; BP diastolic 61–96
[2016-05-05] MEDS: NITROGLYCERIN 2% (1 GM=INCH) PACKET TP SCH ×4 (00:47→17:28)
[2016-05-05] MEDS: PANTOPRAZOLE SODIUM 80 MG in SODIUM CHLORIDE 0.9% 500 ML IV SCH ×2 (04:23→15:11)
[2016-05-05 05:42] LABS: GLUCOSE,POINT OF CARE 92 MG/DL (70-110)
[2016-05-05 05:42] LABS: GLUCOSE COMMENT 1 Received Meds; GLUCOSE,POINT OF CARE 219 MG/DL (70-110)
[2016-05-05 05:42] LABS: GLUCOSE COMMENT 1 Received Meds; GLUCOSE,POINT OF CARE 182 MG/DL (70-110)
[2016-05-05 05:42] LABS: GLUCOSE,POINT OF CARE 67 MG/DL (70-110)
[2016-05-05] MEDS: INSULIN GLARGINE,HUM.REC.ANLOG 100 UNITS/ML SQ SCH (09:00)
[2016-05-05] MEDS: DIGOXIN 125 MCG TABLET PO SCH (09:00)
[2016-05-05] MEDS: BUDESONIDE/FORMOTEROL FUMARATE 160-4.5 MCG/PUFF 6.9 GM INHALER IH SCH ×2 (09:12→20:05)
[2016-05-05] MEDS: CHOLECALCIFEROL (VIT D3) 2,000 UNITS TABLET PO SCH (12:21)
[2016-05-05] MEDS: LISINOPRIL 5 MG TABLET PO SCH (12:21)
[2016-05-05] MEDS: VALSARTAN 80 MG TABLET PO SCH (12:21)
[2016-05-05] MEDS: PredniSONE 10 MG TABLET PO SCH (12:22)
[2016-05-05] MEDS: FLUCONAZOLE 100 MG TABLET PO SCH (12:22)
[2016-05-05] MEDS: GLIMEPIRIDE 2 MG TABLET PO SCH ×2 (12:22→17:28)
[2016-05-05] MEDS: DOCUSATE SODIUM 250 MG CAPSULE PO SCH ×3 (12:22→19:53)
[2016-05-05] MEDS: DOXYCYCLINE 100 MG CAPSULE PO SCH ×2 (12:22→19:53)
[2016-05-05] MEDS: INSULIN ASPART 100 UNITS/ML SQ PRN ×2 (17:30→20:03)
[2016-05-05 19:06] LABS: GLUCOSE COMMENT 1 Received Meds; GLUCOSE,POINT OF CARE 199 MG/DL (70-110)
[2016-05-05 19:06] LABS: GLUCOSE,POINT OF CARE 128 MG/DL (70-110)
[2016-05-05] MEDS ORDERED: DIGOXIN 250 MCG/ML 2 ML AMP IVP ONE (19:45)
[2016-05-05] MEDS ORDERED: METOPROLOL TARTRATE 25 MG TABLET PO ONE (19:45)
[2016-05-05] MEDS: ATORVASTATIN CALCIUM 20 MG TABLET PO SCH (19:53)
[2016-05-05] MEDS: METOPROLOL SUCCINATE 25 MG ER TABLET PO SCH (20:06)
[2016-05-06] VITALS (8 sets, daily range): BP systolic 124–137; BP diastolic 61–80
[2016-05-06] MEDS: NITROGLYCERIN 2% (1 GM=INCH) PACKET TP SCH ×4 (00:01→17:56)
[2016-05-06] MEDS: ACETAMINOPHEN 325 MG TABLET PO PRN (01:05)
[2016-05-06] MEDS: PANTOPRAZOLE SODIUM 80 MG in SODIUM CHLORIDE 0.9% 500 ML IV SCH ×3 (01:06→20:12)
[2016-05-06 06:11] LABS: GLUCOSE COMMENT 1 Received Meds; GLUCOSE,POINT OF CARE 134 MG/DL (70-110)
[2016-05-06 06:16] LABS: GLUCOSE,POINT OF CARE 84 MG/DL (70-110)
[2016-05-06 06:16] LABS: GLUCOSE,POINT OF CARE 324 MG/DL (70-110)
[2016-05-06 07:01] LABS: BASOPHILS % (AUTO) 0.1 % (0.0-2.0); EOSINOPHILS % (AUTO) 1.2 % (1.0-6.0); HEMATOCRIT 35.3 % (36-46); HEMOGLOBIN 11.5 g/dL (12.0-16.0); LYMPHOCYTES # (AUTO) 1.8 K/uL (1.0-4.8); LYMPHOCYTES % (AUTO) 10.6 % (22.0-44.0); MEAN CORPUSCULAR HEMOGLOBIN 30.6 pg (26.0-34.0); MEAN CORPUSCULAR HGB CONC 32.6 G/dL (31.0-37.0); MEAN CORPUSCULAR VOLUME 94 fL (80-100); MONOCYTES % (AUTO) 6.2 % (2.0-9.0); NEUTROPHILS # (AUTO) 13.6 K/uL (1.8-7.7); NEUTROPHILS % (AUTO) 81.9 % (40.0-70.0); PLATELET COUNT (AUTO) 190 K/uL (150-450); RED BLOOD CELL COUNT(AUTO) 3.75 MIL/uL (4.00-5.20); RED CELL DISTRIBUTION WIDTH 15.5 % (11.5-14.5); WHITE BLOOD COUNT (AUTO) 16.6 K/uL (4.5-11.0)
[2016-05-06] MEDS: DIGOXIN 125 MCG TABLET PO SCH (08:24)
[2016-05-06] MEDS: METOPROLOL SUCCINATE 25 MG ER TABLET PO SCH ×2 (08:24→20:13)
[2016-05-06] MEDS: BUDESONIDE/FORMOTEROL FUMARATE 160-4.5 MCG/PUFF 6.9 GM INHALER IH SCH ×2 (08:25→20:12)
[2016-05-06] MEDS: VALSARTAN 80 MG TABLET PO SCH (08:25)
[2016-05-06] MEDS: DOXYCYCLINE 100 MG CAPSULE PO SCH ×2 (08:25→20:12)
[2016-05-06] MEDS: GLIMEPIRIDE 2 MG TABLET PO SCH ×2 (08:25→17:56)
[2016-05-06] MEDS: LISINOPRIL 5 MG TABLET PO SCH (08:25)
[2016-05-06] MEDS: DOCUSATE SODIUM 250 MG CAPSULE PO SCH ×3 (08:26→20:12)
[2016-05-06] MEDS: FLUCONAZOLE 100 MG TABLET PO SCH (08:26)
[2016-05-06] MEDS: PredniSONE 10 MG TABLET PO SCH (08:26)
[2016-05-06] MEDS: INSULIN GLARGINE,HUM.REC.ANLOG 100 UNITS/ML SQ SCH (08:31)
[2016-05-06] MEDS: CHOLECALCIFEROL (VIT D3) 2,000 UNITS TABLET PO SCH (08:31)
[2016-05-06] MEDS: INSULIN ASPART 100 UNITS/ML SQ PRN ×2 (12:15→17:57)
[2016-05-06 14:16] LABS: GLUCOSE COMMENT 1 Received Meds; GLUCOSE,POINT OF CARE 160 MG/DL (70-110)
[2016-05-06] MEDS ORDERED: METOPROLOL TARTRATE 5 MG/5 ML VIAL IVP ONE (18:39)
[2016-05-06] MEDS ORDERED: BISACODYL 10 MG RECTAL RECTAL SUPPOSITORY PR PRN (20:00)
[2016-05-06 20:11] LABS: GLUCOSE COMMENT 1 Received Meds; GLUCOSE,POINT OF CARE 164 MG/DL (70-110)
[2016-05-06] MEDS: ATORVASTATIN CALCIUM 20 MG TABLET PO SCH (20:12)
[2016-05-06 20:16] LABS: GLUCOSE COMMENT 1 Juice/Food/D50 Given; GLUCOSE,POINT OF CARE 69 MG/DL (70-110)
[2016-05-06 20:16] LABS: GLUCOSE COMMENT 1 Received Meds; GLUCOSE,POINT OF CARE 145 MG/DL (70-110)
[2016-05-07] VITALS (17 sets, daily range): BP systolic 111–142; BP diastolic 53–85
[2016-05-07] MEDS: NITROGLYCERIN 2% (1 GM=INCH) PACKET TP SCH ×4 (00:56→17:51)
[2016-05-07 06:08] LABS: INR 1.1 (0.9-1.1); PROTHROMBIN TIME 11.6 SEC (9.4-11.6)
[2016-05-07] MEDS: PANTOPRAZOLE SODIUM 80 MG in SODIUM CHLORIDE 0.9% 500 ML IV SCH ×2 (06:21→16:50)
[2016-05-07] MEDS: GLIMEPIRIDE 2 MG TABLET PO SCH ×2 (08:00→17:47)
[2016-05-07] MEDS ORDERED: SODIUM BICARBONATE 50 MEQ/50 ML VIAL ONE (08:52)
[2016-05-07] MEDS ORDERED: LIDOCAINE HCL/PF 1% 30 ML VIAL ONE (08:52)
[2016-05-07] MEDS ORDERED: FentaNYL CITRATE-PF 100 MCG/2 ML VIAL ONE (08:55)
[2016-05-07] MEDS ORDERED: IOHEXOL 300 MG/ML 50 ML VIAL ONE (08:55)
[2016-05-07] MEDS ORDERED: MIDAZOLAM HCL 2 MG/2 ML VIAL ONE (08:55)
[2016-05-07] MEDS: VALSARTAN 80 MG TABLET PO SCH (09:00)
[2016-05-07] MEDS: LISINOPRIL 5 MG TABLET PO SCH (09:00)
[2016-05-07] MEDS: DOCUSATE SODIUM 250 MG CAPSULE PO SCH ×3 (09:00→21:19)
[2016-05-07] MEDS: METOPROLOL SUCCINATE 25 MG ER TABLET PO SCH (09:00)
[2016-05-07] MEDS: BUDESONIDE/FORMOTEROL FUMARATE 160-4.5 MCG/PUFF 6.9 GM INHALER IH SCH ×2 (09:00→21:19)
[2016-05-07] MEDS: DIGOXIN 125 MCG TABLET PO SCH (09:00)
[2016-05-07] MEDS: INSULIN GLARGINE,HUM.REC.ANLOG 100 UNITS/ML SQ SCH (09:00)
[2016-05-07] MEDS: FLUCONAZOLE 100 MG TABLET PO SCH (09:00)
[2016-05-07] MEDS: CHOLECALCIFEROL (VIT D3) 2,000 UNITS TABLET PO SCH (09:00)
[2016-05-07] MEDS: PredniSONE 10 MG TABLET PO SCH (09:00)
[2016-05-07 09:20] LABS: GLUCOSE,POINT OF CARE 159 MG/DL (70-110)
[2016-05-07 09:26] LABS: GLUCOSE,POINT OF CARE 90 MG/DL (70-110)
[2016-05-07] MEDS ORDERED: FentaNYL CITRATE-PF 100 MCG/2 ML VIAL IVP ONE ×2 (09:45)
[2016-05-07] MEDS ORDERED: LIDOCAINE 1% 30 ML/SOD BICARB 8.4% 4 ML SQ ONE (09:45)
[2016-05-07] MEDS ORDERED: IOHEXOL 300 MG/ML 50 ML VIAL IVP ONE (09:45)
[2016-05-07] MEDS ORDERED: MIDAZOLAM HCL 2 MG/2 ML VIAL IVP ONE (09:45)
[2016-05-07] MEDS ORDERED: AMIODARONE HCL 150 MG in DEXTROSE 5%-WATER 97 ML IV ONE (10:15)
[2016-05-07] MEDS ORDERED: AMIODARONE HCL 360 MG in DEXTROSE 5%-WATER 242.8 ML IV ONE (10:15)
[2016-05-07] MEDS ORDERED: DIGOXIN 250 MCG/ML 2 ML AMP IVP ONE (10:15)
[2016-05-07] MEDS ORDERED: AMIODARONE HCL 540 MG in DEXTROSE 5%-WATER 239.2 ML IV ONE (16:15)
[2016-05-07] MEDS ORDERED: SODIUM CHLORIDE 0.9% 250 ML IV ONE (16:45)
[2016-05-07] MEDS: CeFAZolin 1 GM/DEXTROSE 50 ML IV SCH ×2 (16:48→21:19)
[2016-05-07] MEDS: HYDROCODONE/ACETAMINOPHEN 5-325 MG TABLET PO PRN (16:51)
[2016-05-07] MEDS: INSULIN ASPART 100 UNITS/ML SQ PRN (17:48)
[2016-05-07 18:01] LABS: GLUCOSE,POINT OF CARE 96 MG/DL (70-110)
[2016-05-07 19:31] LABS: GLUCOSE COMMENT 1 Received Meds; GLUCOSE,POINT OF CARE 303 MG/DL (70-110)
[2016-05-07] MEDS: ATORVASTATIN CALCIUM 20 MG TABLET PO SCH (21:19)
[2016-05-07] MEDS: METOPROLOL TARTRATE 25 MG TABLET PO SCH (21:19)
[2016-05-08] VITALS: BP 114/65
[2016-05-08 00:51] LABS: GLUCOSE,POINT OF CARE 121 MG/DL (70-110)
[2016-05-08] MEDS: NITROGLYCERIN 2% (1 GM=INCH) PACKET TP SCH ×3 (01:09→12:03)
[2016-05-08] MEDS: HYDROCODONE/ACETAMINOPHEN 5-325 MG TABLET PO PRN ×2 (01:10→08:46)
[2016-05-08] MEDS: PANTOPRAZOLE SODIUM 80 MG in SODIUM CHLORIDE 0.9% 500 ML IV SCH (04:14)
[2016-05-08] MEDS: CeFAZolin 1 GM/DEXTROSE 50 ML IV SCH (04:26)
[2016-05-08 04:47] VITALS: BP 104/68
[2016-05-08 06:46] LABS: GLUCOSE,POINT OF CARE 143 MG/DL (70-110)
[2016-05-08 07:14] VITALS: BP 121/73
[2016-05-08] MEDS: GLIMEPIRIDE 2 MG TABLET PO SCH ×2 (08:46→17:57)
[2016-05-08] MEDS: PredniSONE 10 MG TABLET PO SCH (08:46)
[2016-05-08] MEDS: CHOLECALCIFEROL (VIT D3) 2,000 UNITS TABLET PO SCH (08:46)
[2016-05-08] MEDS: LISINOPRIL 5 MG TABLET PO SCH (08:46)
[2016-05-08] MEDS: DOCUSATE SODIUM 250 MG CAPSULE PO SCH ×3 (08:46→21:02)
[2016-05-08] MEDS: FLUCONAZOLE 100 MG TABLET PO SCH (08:46)
[2016-05-08] MEDS: VALSARTAN 80 MG TABLET PO SCH (08:46)
[2016-05-08] MEDS: BUDESONIDE/FORMOTEROL FUMARATE 160-4.5 MCG/PUFF 6.9 GM INHALER IH SCH ×2 (08:47→21:03)
[2016-05-08] MEDS: INSULIN GLARGINE,HUM.REC.ANLOG 100 UNITS/ML SQ SCH (08:47)
[2016-05-08] MEDS: DIGOXIN 125 MCG TABLET PO SCH (08:48)
[2016-05-08] MEDS: METOPROLOL TARTRATE 25 MG TABLET PO SCH ×2 (08:48→21:02)
[2016-05-08 10:51] VITALS: BP 110/50
[2016-05-08] MEDS: AMIODARONE HCL 750 MG in DEXTROSE 5%-WATER 485 ML IV SCH (11:06)
[2016-05-08] MEDS: INSULIN ASPART 100 UNITS/ML SQ PRN ×2 (12:14→17:55)
[2016-05-08 15:12] VITALS: BP 118/57
[2016-05-08 16:55] LABS: GLUCOSE COMMENT 1 Received Meds; GLUCOSE,POINT OF CARE 236 MG/DL (70-110)
[2016-05-08 19:42] VITALS: BP 129/86
[2016-05-08] MEDS: ATORVASTATIN CALCIUM 20 MG TABLET PO SCH (21:02)
[2016-05-08] MEDS: PANTOPRAZOLE SODIUM 40 MG/VIAL IVP SCH (21:02)
[2016-05-09] VITALS (7 sets, daily range): BP systolic 128–203; BP diastolic 57–101
[2016-05-09] MEDS: HYDROCODONE/ACETAMINOPHEN 5-325 MG TABLET PO PRN (06:25)
[2016-05-09 06:32] LABS: GLUCOSE,POINT OF CARE 140 MG/DL (70-110)
[2016-05-09 07:51] LABS: GLUCOSE COMMENT 1 Received Meds; GLUCOSE,POINT OF CARE 215 MG/DL (70-110)
[2016-05-09 07:51] LABS: GLUCOSE,POINT OF CARE 168 MG/DL (70-110)
[2016-05-09] MEDS: OXYGEN THERAPY IH SCH ×2 (08:36→20:00)
[2016-05-09] MEDS: LISINOPRIL 5 MG TABLET PO SCH (08:36)
[2016-05-09] MEDS: DOCUSATE SODIUM 250 MG CAPSULE PO SCH ×3 (08:36→21:38)
[2016-05-09] MEDS: PANTOPRAZOLE SODIUM 40 MG/VIAL IVP SCH ×2 (08:36→21:39)
[2016-05-09] MEDS: METOPROLOL TARTRATE 25 MG TABLET PO SCH ×2 (08:36→21:38)
[2016-05-09] MEDS: VALSARTAN 80 MG TABLET PO SCH (08:37)
[2016-05-09] MEDS: FLUCONAZOLE 100 MG TABLET PO SCH (08:37)
[2016-05-09] MEDS: GLIMEPIRIDE 2 MG TABLET PO SCH (08:37)
[2016-05-09] MEDS: PredniSONE 10 MG TABLET PO SCH (08:37)
[2016-05-09] MEDS: CHOLECALCIFEROL (VIT D3) 2,000 UNITS TABLET PO SCH (08:37)
[2016-05-09] MEDS: BUDESONIDE/FORMOTEROL FUMARATE 160-4.5 MCG/PUFF 6.9 GM INHALER IH SCH ×2 (08:37→21:39)
[2016-05-09] MEDS: INSULIN GLARGINE,HUM.REC.ANLOG 100 UNITS/ML SQ SCH (08:39)
[2016-05-09] MEDS: MethylPREDNISolone SOD SUCC 40 MG/ML VIAL IVP SCH ×2 (11:26→18:54)
[2016-05-09] MEDS ORDERED: ALBUTEROL SULFATE 2.5 MG/0.5 ML NEB SOLUTION NEB ONE (11:27)
[2016-05-09] MEDS ORDERED: IPRATROPIUM BROMIDE 0.5 MG/2.5 ML NEB SOLUTION NEB ONE (11:27)
[2016-05-09] MEDS: AMIODARONE HCL 750 MG in DEXTROSE 5%-WATER 485 ML IV SCH (11:28)
[2016-05-09] MEDS ORDERED: ALBUTEROL SULFATE 2.5 MG/0.5 ML NEB SOLUTION NEB SCH (11:30)
[2016-05-09] MEDS ORDERED: IPRATROPIUM BROMIDE 0.5 MG/2.5 ML NEB SOLUTION NEB SCH (11:30)
[2016-05-09 11:45] LABS: ABG A-A DIFF O2 559.9 mmHg (10-20.0); ABG BASE EXCESS -1.2 mmol/L (-2.0-3.0); ABG HCO3 22.6 mmol/L (22.0-26.0); ABG OXYHEMOGLOBIN 85.6 % (94.0-100.0); ABG PCO2 56 mmHg (35-45); ABG PH 7.276 (7.35-7.450); TEMPERATURE, FAHRENHEIT, BG 98.6 FAHREN (96.0-98.6)
[2016-05-09 11:46] LABS: ALLEN TEST, BLOOD GAS PASS
[2016-05-09] MEDS: HydrALAZINE HCL 20 MG/ML VIAL IVP PRN (11:58)
[2016-05-09] MEDS ORDERED: HydrALAZINE HCL 20 MG/ML VIAL IVP PRN (14:45)
[2016-05-09] MEDS ORDERED: FUROSEMIDE 40 MG/4 ML VIAL IVP ONE (15:00)
[2016-05-09 15:40] LABS: ANION GAP 7 mmol/L (8-16); CALCIUM, TOTAL 7.5 mg/dL (8.8-10.5); CARBON DIOXIDE 27 mmol/L (22-29); CHLORIDE 101 mmol/L (98-107); CREATININE 0.72 mg/dL (0.60-1.30); GLOMERULAR FILTR. RATE CALC > 60 mL/min (>60); POTASSIUM 3.5 mmol/L (3.5-5.1); SODIUM SERUM 135 mmol/L (136-145); UREA NITROGEN, BLOOD 21 mg/dL (7-18)
[2016-05-09 17:01] LABS: ABG BASE EXCESS 1.3 mmol/L (-2.0-3.0); ABG HCO3 26.1 mmol/L (22.0-26.0); ABG PCO2 32 mmHg (35-45); ABG PH 7.504 (7.35-7.450); ALLEN TEST, BLOOD GAS Positive; TEMPERATURE, FAHRENHEIT, BG 98.3 FAHREN (96.0-98.6)
[2016-05-09 17:03] LABS: IPAP, BG 14 cm H2O
[2016-05-09 17:57] LABS: GLUCOSE COMMENT 1 Received Meds; GLUCOSE,POINT OF CARE 265 MG/DL (70-110)
[2016-05-09 17:57] LABS: GLUCOSE,POINT OF CARE 220 MG/DL (70-110)
[2016-05-09] MEDS: ATORVASTATIN CALCIUM 20 MG TABLET PO SCH (21:38)
[2016-05-09] MEDS: INSULIN ASPART 100 UNITS/ML SQ PRN (21:46)
[2016-05-10] MEDS: MethylPREDNISolone SOD SUCC 40 MG/ML VIAL IVP SCH ×5 (00:55→23:02)
[2016-05-10 04:00] VITALS: BP 127/73
[2016-05-10 05:09] LABS: EOSINOPHILS % (AUTO) 0.01 % (1.0-6.0); HEMATOCRIT 33.5 % (36-46); HEMOGLOBIN 11.1 g/dL (12.0-16.0); LYMPHOCYTES % (AUTO) 4.9 % (22.0-44.0); MEAN CORPUSCULAR HEMOGLOBIN 31.4 pg (26.0-34.0); MEAN CORPUSCULAR HGB CONC 33.1 G/dL (31.0-37.0); MEAN CORPUSCULAR VOLUME 95 fL (80-100); MONOCYTES # (AUTO) 0.4 K/uL (0.1-1.0); MONOCYTES % (AUTO) 1.8 % (2.0-9.0); NEUTROPHILS # (AUTO) 18.5 K/uL (1.8-7.7); PLATELET COUNT (AUTO) 155 K/uL (150-450); RED BLOOD CELL COUNT(AUTO) 3.54 MIL/uL (4.00-5.20); RED CELL DISTRIBUTION WIDTH 16.6 % (11.5-14.5); WHITE BLOOD COUNT (AUTO) 19.9 K/uL (4.5-11.0)
[2016-05-10 05:15] LABS: NEUTROPHILS % (AUTO) 93.4 % (40.0-70.0)
[2016-05-10 05:22] LABS: ANION GAP 7 mmol/L (8-16); CALCIUM, TOTAL 8.1 mg/dL (8.8-10.5); CARBON DIOXIDE 30 mmol/L (22-29); CHLORIDE 100 mmol/L (98-107); CREATININE 0.79 mg/dL (0.60-1.30); GLOMERULAR FILTR. RATE CALC > 60 mL/min (>60); POTASSIUM 3.1 mmol/L (3.5-5.1); SODIUM SERUM 137 mmol/L (136-145); UREA NITROGEN, BLOOD 23 mg/dL (7-18)
[2016-05-10 05:29] LABS: B-TYPE NATRIURETIC PEPTIDE 304 pg/mL (0-100)
[2016-05-10] MEDS: POTASSIUM CHLORIDE 20 MEQ ER TABLET PO PRN ×3 (06:15→06:39)
[2016-05-10] MEDS ORDERED: SODIUM CHLORIDE 0.9% 250 ML IV ONE ×3 (06:32→20:41)
[2016-05-10] MEDS: HYDROCODONE/ACETAMINOPHEN 5-325 MG TABLET PO PRN (06:39)
[2016-05-10 07:31] LABS: GLUCOSE,POINT OF CARE 223 MG/DL (70-110)
[2016-05-10] MEDS: INSULIN GLARGINE,HUM.REC.ANLOG 100 UNITS/ML SQ SCH (07:55)
[2016-05-10 07:56] LABS: RBC MORPHOLOGY COMMENT ABNORMAL RBC MORPH
[2016-05-10 08:00] VITALS: BP 143/82
[2016-05-10] MEDS: METOPROLOL TARTRATE 25 MG TABLET PO SCH ×2 (08:07→20:40)
[2016-05-10] MEDS: DOCUSATE SODIUM 250 MG CAPSULE PO SCH ×3 (08:07→21:00)
[2016-05-10] MEDS: LISINOPRIL 5 MG TABLET PO SCH (08:08)
[2016-05-10] MEDS: CHOLECALCIFEROL (VIT D3) 2,000 UNITS TABLET PO SCH (08:08)
[2016-05-10] MEDS: BUDESONIDE/FORMOTEROL FUMARATE 160-4.5 MCG/PUFF 6.9 GM INHALER IH SCH ×2 (08:08→20:26)
[2016-05-10] MEDS: GLIMEPIRIDE 2 MG TABLET PO SCH ×3 (08:08→18:22)
[2016-05-10] MEDS: PANTOPRAZOLE SODIUM 40 MG/VIAL IVP SCH ×2 (08:11→20:33)
[2016-05-10] MEDS: OXYGEN THERAPY IH SCH ×2 (08:28→20:25)
[2016-05-10] MEDS ORDERED: LACTULOSE 20 GM/30 ML SOLUTION UDCUP PO PRN (09:15)
[2016-05-10 09:56] LABS: ALANINE AMINOTRANSFERASE 22 U/L (12-78); ALBUMIN 2.2 g/dL (3.4-5.0); ASPARTATE AMINOTRANSFERASE 22 U/L (15-37); BILIRUBIN,TOTAL 0.5 mg/dL (0.1-1.0); TOTAL PROTEIN, SERUM 5.4 g/dL (6.4-8.2)
[2016-05-10] MEDS: INSULIN ASPART 100 UNITS/ML SQ PRN ×3 (11:59→21:08)
[2016-05-10 12:00] VITALS: BP 121/68
[2016-05-10 12:46] LABS: GLUCOSE COMMENT 1 Received Meds; GLUCOSE,POINT OF CARE 322 MG/DL (70-110)
[2016-05-10 12:46] LABS: GLUCOSE,POINT OF CARE 180 MG/DL (70-110)
[2016-05-10 16:00] VITALS: BP 107/47
[2016-05-10] MEDS: POTASSIUM CHL 10 MEQ/WATER 50 ML IV PRN ×3 (16:27→23:00)
[2016-05-10] MEDS: CARBAMIDE PEROXIDE 10% 15 ML SOLUTION MM PRN ×2 (16:28→21:05)
[2016-05-10 17:07] VITALS: BP 115/60
[2016-05-10] MEDS: ATORVASTATIN CALCIUM 20 MG TABLET PO SCH (20:33)
[2016-05-10 20:36] VITALS: BP 145/69
[2016-05-10 22:06] LABS: GLUCOSE COMMENT 1 Received Meds; GLUCOSE,POINT OF CARE 204 MG/DL (70-110)
[2016-05-11 00:35] VITALS: BP 121/67
[2016-05-11] MEDS: POTASSIUM CHL 10 MEQ/WATER 50 ML IV PRN ×2 (02:50→05:03)
[2016-05-11] MEDS ORDERED: SODIUM CHLORIDE 0.9% 500 ML IV ONE (04:18)
[2016-05-11 04:56] VITALS: BP 130/90
[2016-05-11] MEDS: MethylPREDNISolone SOD SUCC 40 MG/ML VIAL IVP SCH ×4 (05:06→23:53)
[2016-05-11] MEDS: INSULIN ASPART 100 UNITS/ML SQ PRN ×4 (05:59→23:11)
[2016-05-11 07:18] VITALS: BP 134/83
[2016-05-11] MEDS: GLIMEPIRIDE 2 MG TABLET PO SCH ×2 (08:12→17:18)
[2016-05-11] MEDS: CHOLECALCIFEROL (VIT D3) 2,000 UNITS TABLET PO SCH (08:12)
[2016-05-11] MEDS: LISINOPRIL 5 MG TABLET PO SCH (08:12)
[2016-05-11] MEDS: METOPROLOL TARTRATE 25 MG TABLET PO SCH ×2 (08:12→20:14)
[2016-05-11] MEDS: INSULIN GLARGINE,HUM.REC.ANLOG 100 UNITS/ML SQ SCH (08:12)
[2016-05-11] MEDS: PANTOPRAZOLE SODIUM 40 MG/VIAL IVP SCH ×2 (08:12→20:13)
[2016-05-11] MEDS: FUROSEMIDE 20 MG TABLET PO SCH (08:12)
[2016-05-11] MEDS: DOCUSATE SODIUM 250 MG CAPSULE PO SCH ×3 (08:12→20:14)
[2016-05-11] MEDS: BUDESONIDE/FORMOTEROL FUMARATE 160-4.5 MCG/PUFF 6.9 GM INHALER IH SCH ×2 (08:19→20:13)
[2016-05-11] MEDS: OXYGEN THERAPY IH SCH ×2 (08:19→20:13)
[2016-05-11 11:33] VITALS: BP 130/73
[2016-05-11 15:45] VITALS: BP 130/72
[2016-05-11 17:26] LABS: GLUCOSE,POINT OF CARE 200 MG/DL (70-110)
[2016-05-11 17:26] LABS: GLUCOSE,POINT OF CARE 351 MG/DL (70-110)
[2016-05-11] MEDS: IPRATROPIUM BROMIDE 0.5 MG/2.5 ML NEB SOLUTION NEB PRN (17:37)
[2016-05-11] MEDS: ALBUTEROL SULFATE 2.5 MG/0.5 ML NEB SOLUTION NEB PRN (17:37)
[2016-05-11 17:46] LABS: ABG A-A DIFF O2 65.6 mmHg (10-20.0); ABG BASE EXCESS 2.6 mmol/L (-2.0-3.0); ABG HCO3 26.9 mmol/L (22.0-26.0); ABG PCO2 34 mmHg (35-45); ABG PH 7.497 (7.35-7.450); TEMPERATURE, FAHRENHEIT, BG 98.2 FAHREN (96.0-98.6)
[2016-05-11 17:48] LABS: ALLEN TEST, BLOOD GAS Positive
[2016-05-11 19:32] LABS: GLUCOSE,POINT OF CARE 180 MG/DL (70-110)
[2016-05-11 19:32] LABS: GLUCOSE COMMENT 1 Received Meds; GLUCOSE,POINT OF CARE 231 MG/DL (70-110)
[2016-05-11] MEDS: AMIODARONE HCL 200 MG TABLET PO SCH (20:14)
[2016-05-11] MEDS: ATORVASTATIN CALCIUM 20 MG TABLET PO SCH (20:14)
[2016-05-11 20:25] VITALS: BP 146/77
[2016-05-12] VITALS (8 sets, daily range): BP systolic 119–152; BP diastolic 64–95
[2016-05-12] MEDS: MethylPREDNISolone SOD SUCC 40 MG/ML VIAL IVP SCH ×3 (05:51→17:46)
[2016-05-12] MEDS: INSULIN ASPART 100 UNITS/ML SQ PRN ×4 (06:12→21:10)
[2016-05-12] MEDS: OXYGEN THERAPY IH SCH ×2 (08:10→21:09)
[2016-05-12 08:11] LABS: GLUCOSE,POINT OF CARE 193 MG/DL (70-110)
[2016-05-12] MEDS: PANTOPRAZOLE SODIUM 40 MG/VIAL IVP SCH ×2 (08:11→21:06)
[2016-05-12] MEDS: CHOLECALCIFEROL (VIT D3) 2,000 UNITS TABLET PO SCH (08:11)
[2016-05-12] MEDS: METOPROLOL TARTRATE 25 MG TABLET PO SCH ×2 (08:11→20:35)
[2016-05-12] MEDS: DOCUSATE SODIUM 250 MG CAPSULE PO SCH ×3 (08:11→20:35)
[2016-05-12] MEDS: FUROSEMIDE 20 MG TABLET PO SCH (08:11)
[2016-05-12] MEDS: LISINOPRIL 5 MG TABLET PO SCH (08:11)
[2016-05-12] MEDS: AMIODARONE HCL 200 MG TABLET PO SCH ×2 (08:11→20:35)
[2016-05-12] MEDS: GLIMEPIRIDE 2 MG TABLET PO SCH ×2 (08:11→17:47)
[2016-05-12] MEDS: INSULIN GLARGINE,HUM.REC.ANLOG 100 UNITS/ML SQ SCH (08:21)
[2016-05-12] MEDS: BUDESONIDE/FORMOTEROL FUMARATE 160-4.5 MCG/PUFF 6.9 GM INHALER IH SCH ×2 (08:22→20:36)
[2016-05-12] MEDS ORDERED: METOPROLOL TARTRATE 25 MG TABLET PO ONE (08:30)
[2016-05-12 11:18] LABS: TOTAL PROTEIN, SERUM 5.4 g/dL (6.4-8.2)
[2016-05-12 12:16] LABS: GLUCOSE,POINT OF CARE 148 MG/DL (70-110)
[2016-05-12 12:16] LABS: GLUCOSE COMMENT 1 Received Meds; GLUCOSE,POINT OF CARE 243 MG/DL (70-110)
[2016-05-12] MEDS ORDERED: FUROSEMIDE 20 MG/2 ML VIAL IVP ONE (13:00)
[2016-05-12 16:51] LABS: APPEARANCE,UNSPUN,BODY FLUID HAZY (CLEAR); COLOR,BODY FLUID YELLOW (LT YELLOW)
[2016-05-12 17:20] LABS: OTHER CELLS,BODY FLUID 0
[2016-05-12 18:11] LABS: GLUCOSE COMMENT 1 Received Meds; GLUCOSE,POINT OF CARE 228 MG/DL (70-110)
[2016-05-12] MEDS: ATORVASTATIN CALCIUM 20 MG TABLET PO SCH (20:35)
[2016-05-13] MEDS: MethylPREDNISolone SOD SUCC 40 MG/ML VIAL IVP SCH ×5 (00:13→23:48)
[2016-05-13 04:01] VITALS: BP 125/73
[2016-05-13] MEDS: INSULIN ASPART 100 UNITS/ML SQ PRN ×4 (05:43→20:29)
[2016-05-13 07:01] LABS: GLUCOSE COMMENT 1 Received Meds; GLUCOSE,POINT OF CARE 144 MG/DL (70-110)
[2016-05-13 07:53] VITALS: BP 147/74
[2016-05-13] MEDS ORDERED: FUROSEMIDE 40 MG TABLET PO SCH (09:00)
[2016-05-13] MEDS: DOCUSATE SODIUM 250 MG CAPSULE PO SCH ×3 (09:00→20:04)
[2016-05-13] MEDS: PANTOPRAZOLE SODIUM 40 MG/VIAL IVP SCH ×2 (09:27→20:06)
[2016-05-13] MEDS: LISINOPRIL 5 MG TABLET PO SCH (09:28)
[2016-05-13] MEDS: METOPROLOL TARTRATE 25 MG TABLET PO SCH ×2 (09:28→23:22)
[2016-05-13] MEDS: CHOLECALCIFEROL (VIT D3) 2,000 UNITS TABLET PO SCH (09:28)
[2016-05-13] MEDS: AMIODARONE HCL 200 MG TABLET PO SCH ×2 (09:28→20:05)
[2016-05-13] MEDS: BUDESONIDE/FORMOTEROL FUMARATE 160-4.5 MCG/PUFF 6.9 GM INHALER IH SCH ×3 (09:28→20:20)
[2016-05-13] MEDS: GLIMEPIRIDE 2 MG TABLET PO SCH ×2 (09:28→17:50)
[2016-05-13] MEDS: OXYGEN THERAPY IH SCH ×2 (09:30→19:52)
[2016-05-13] MEDS: FUROSEMIDE 40 MG TABLET PO SCH ×2 (09:30→20:05)
[2016-05-13] MEDS: INSULIN GLARGINE,HUM.REC.ANLOG 100 UNITS/ML SQ SCH (09:39)
[2016-05-13 11:01] VITALS: BP 123/60
[2016-05-13 15:12] VITALS: BP 126/62
[2016-05-13 17:51] LABS: GLUCOSE COMMENT 1 Received Meds; GLUCOSE,POINT OF CARE 238 MG/DL (70-110)
[2016-05-13 18:13] LABS: GLUCOSE, BODY FLUID,REF 226 mg/dL
[2016-05-13 19:46] VITALS: BP 141/64
[2016-05-13] MEDS: ATORVASTATIN CALCIUM 20 MG TABLET PO SCH (20:04)
[2016-05-13] MEDS: POLYETHYLENE GLYCOL 3350 17 GM PACKET PO SCH (20:05)
[2016-05-13 23:20] VITALS: BP 128/88
[2016-05-13] MEDS: APIXABAN 2.5 MG TABLET PO SCH (23:22)
[2016-05-14] VITALS (7 sets, daily range): BP systolic 104–156; BP diastolic 58–91
[2016-05-14 05:55] LABS: EOSINOPHILS % (AUTO) 0.02 % (1.0-6.0); HEMATOCRIT 31.5 % (36-46); HEMOGLOBIN 10.6 g/dL (12.0-16.0); LYMPHOCYTES # (AUTO) 0.6 K/uL (1.0-4.8); LYMPHOCYTES % (AUTO) 4.4 % (22.0-44.0); MEAN CORPUSCULAR HEMOGLOBIN 31.4 pg (26.0-34.0); MEAN CORPUSCULAR HGB CONC 33.6 G/dL (31.0-37.0); MEAN CORPUSCULAR VOLUME 94 fL (80-100); MONOCYTES # (AUTO) 0.3 K/uL (0.1-1.0); MONOCYTES % (AUTO) 2.5 % (2.0-9.0); NEUTROPHILS # (AUTO) 12.9 K/uL (1.8-7.7); PLATELET COUNT (AUTO) 132 K/uL (150-450); RED BLOOD CELL COUNT(AUTO) 3.37 MIL/uL (4.00-5.20); RED CELL DISTRIBUTION WIDTH 16.6 % (11.5-14.5); WHITE BLOOD COUNT (AUTO) 13.8 K/uL (4.5-11.0)
[2016-05-14] MEDS: MethylPREDNISolone SOD SUCC 40 MG/ML VIAL IVP SCH ×2 (06:20→20:32)
[2016-05-14] MEDS: INSULIN ASPART 100 UNITS/ML SQ PRN ×3 (06:25→20:35)
[2016-05-14 06:26] LABS: ALANINE AMINOTRANSFERASE 33 U/L (12-78); ALBUMIN 2.2 g/dL (3.4-5.0); ANION GAP 6 mmol/L (8-16); ASPARTATE AMINOTRANSFERASE 19 U/L (15-37); BILIRUBIN,TOTAL 0.4 mg/dL (0.1-1.0); CALCIUM, TOTAL 7.6 mg/dL (8.8-10.5); CARBON DIOXIDE 30 mmol/L (22-29); CHLORIDE 100 mmol/L (98-107); CREATININE 0.82 mg/dL (0.60-1.30); GLOMERULAR FILTR. RATE CALC > 60 mL/min (>60); POTASSIUM 3.4 mmol/L (3.5-5.1); SODIUM SERUM 136 mmol/L (136-145); TOTAL PROTEIN, SERUM 4.9 g/dL (6.4-8.2); UREA NITROGEN, BLOOD 35 mg/dL (7-18)
[2016-05-14 06:49] LABS: NEUTROPHILS % (AUTO) 93.1 % (40.0-70.0)
[2016-05-14] MEDS: AMIODARONE HCL 200 MG TABLET PO SCH ×2 (08:16→20:33)
[2016-05-14] MEDS: CHOLECALCIFEROL (VIT D3) 2,000 UNITS TABLET PO SCH (08:16)
[2016-05-14] MEDS: DOCUSATE SODIUM 250 MG CAPSULE PO SCH ×3 (08:16→20:32)
[2016-05-14] MEDS: APIXABAN 2.5 MG TABLET PO SCH ×2 (08:17→20:32)
[2016-05-14] MEDS: LISINOPRIL 5 MG TABLET PO SCH (08:17)
[2016-05-14] MEDS: GLIMEPIRIDE 2 MG TABLET PO SCH ×2 (08:17→17:37)
[2016-05-14] MEDS: FUROSEMIDE 40 MG TABLET PO SCH ×2 (08:17→20:33)
[2016-05-14] MEDS: PANTOPRAZOLE SODIUM 40 MG/VIAL IVP SCH ×2 (08:18→20:32)
[2016-05-14] MEDS: INSULIN GLARGINE,HUM.REC.ANLOG 100 UNITS/ML SQ SCH (08:24)
[2016-05-14] MEDS: OXYGEN THERAPY IH SCH ×2 (08:34→20:31)
[2016-05-14] MEDS: BUDESONIDE/FORMOTEROL FUMARATE 160-4.5 MCG/PUFF 6.9 GM INHALER IH SCH ×2 (09:00→20:32)
[2016-05-14] MEDS: METOPROLOL TARTRATE 25 MG TABLET PO SCH ×2 (09:00→20:32)
[2016-05-14] MEDS ORDERED: SESTAMIBI TC99M/UD ISOTOPE 1 EA INJ INJ ONE ×2 (09:40→14:20)
[2016-05-14 12:26] LABS: GLUCOSE COMMENT 1 Received Meds; GLUCOSE,POINT OF CARE 280 MG/DL (70-110)
[2016-05-14] MEDS ORDERED: REGADENOSON 0.4 MG/5 ML PF SYRINGE IVP ONE ×2 (14:16→17:20)
[2016-05-14] MEDS: POTASSIUM CHLORIDE 20 MEQ ER TABLET PO PRN (15:05)
[2016-05-14] MEDS: ACETAMINOPHEN 325 MG TABLET PO PRN (15:06)
[2016-05-14 17:33] LABS: LDH,BODY FLUID,REF 42 IU/L
[2016-05-14] MEDS: POLYETHYLENE GLYCOL 3350 17 GM PACKET PO SCH (20:33)
[2016-05-14] MEDS: ATORVASTATIN CALCIUM 20 MG TABLET PO SCH (20:33)
[2016-05-15 01:09] VITALS: BP 114/79
[2016-05-15] MEDS: INSULIN ASPART 100 UNITS/ML SQ PRN ×4 (06:53→20:52)
[2016-05-15 07:15] VITALS: BP 116/59
[2016-05-15 07:31] LABS: BASOPHILS # (AUTO) 0.01 K/uL (0.00-0.20); BASOPHILS % (AUTO) 0.1 % (0.0-2.0); EOSINOPHILS % (AUTO) 0 % (1.0-6.0); HEMATOCRIT 33.2 % (36-46); LYMPHOCYTES # (AUTO) 0.9 K/uL (1.0-4.8); LYMPHOCYTES % (AUTO) 5.6 % (22.0-44.0); MEAN CORPUSCULAR HEMOGLOBIN 31.6 pg (26.0-34.0); MEAN CORPUSCULAR HGB CONC 33.2 G/dL (31.0-37.0); MEAN CORPUSCULAR VOLUME 95 fL (80-100); MONOCYTES # (AUTO) 0.3 K/uL (0.1-1.0); MONOCYTES % (AUTO) 1.8 % (2.0-9.0); NEUTROPHILS # (AUTO) 15.5 K/uL (1.8-7.7); PLATELET COUNT (AUTO) 116 K/uL (150-450); RED BLOOD CELL COUNT(AUTO) 3.49 MIL/uL (4.00-5.20); RED CELL DISTRIBUTION WIDTH 15.7 % (11.5-14.5); WHITE BLOOD COUNT (AUTO) 16.7 K/uL (4.5-11.0)
[2016-05-15 07:34] LABS: NEUTROPHILS % (AUTO) 92.6 % (40.0-70.0)
[2016-05-15 07:40] LABS: ALANINE AMINOTRANSFERASE 30 U/L (12-78); ALBUMIN 2.4 g/dL (3.4-5.0); ANION GAP 6 mmol/L (8-16); ASPARTATE AMINOTRANSFERASE 13 U/L (15-37); BILIRUBIN,TOTAL 0.4 mg/dL (0.1-1.0); CALCIUM, TOTAL 7.7 mg/dL (8.8-10.5); CARBON DIOXIDE 34 mmol/L (22-29); CHLORIDE 99 mmol/L (98-107); CREATININE 0.86 mg/dL (0.60-1.30); GLOMERULAR FILTR. RATE CALC > 60 mL/min (>60); POTASSIUM 3.6 mmol/L (3.5-5.1); SODIUM SERUM 139 mmol/L (136-145); TOTAL PROTEIN, SERUM 5.1 g/dL (6.4-8.2); UREA NITROGEN, BLOOD 29 mg/dL (7-18)
[2016-05-15] MEDS: LISINOPRIL 5 MG TABLET PO SCH (08:03)
[2016-05-15] MEDS: AMIODARONE HCL 200 MG TABLET PO SCH ×2 (08:03→20:33)
[2016-05-15] MEDS: FUROSEMIDE 40 MG TABLET PO SCH ×2 (08:03→20:32)
[2016-05-15] MEDS: GLIMEPIRIDE 2 MG TABLET PO SCH ×2 (08:03→18:21)
[2016-05-15] MEDS: DOCUSATE SODIUM 250 MG CAPSULE PO SCH ×3 (08:04→20:32)
[2016-05-15] MEDS: METOPROLOL TARTRATE 25 MG TABLET PO SCH ×2 (08:04→20:32)
[2016-05-15] MEDS: APIXABAN 2.5 MG TABLET PO SCH ×2 (08:04→20:32)
[2016-05-15] MEDS: PANTOPRAZOLE SODIUM 40 MG/VIAL IVP SCH ×2 (08:04→20:32)
[2016-05-15] MEDS: MethylPREDNISolone SOD SUCC 40 MG/ML VIAL IVP SCH ×2 (08:04→20:32)
[2016-05-15] MEDS: CHOLECALCIFEROL (VIT D3) 2,000 UNITS TABLET PO SCH (08:04)
[2016-05-15] MEDS: INSULIN GLARGINE,HUM.REC.ANLOG 100 UNITS/ML SQ SCH (08:05)
[2016-05-15] MEDS: OXYGEN THERAPY IH SCH ×2 (08:23→20:31)
[2016-05-15] MEDS ORDERED: FUROSEMIDE 20 MG/2 ML VIAL IVP ONE (08:45)
[2016-05-15] MEDS: BUDESONIDE/FORMOTEROL FUMARATE 160-4.5 MCG/PUFF 6.9 GM INHALER IH SCH ×2 (09:00→20:40)
[2016-05-15 11:12] VITALS: BP 117/61
[2016-05-15 11:46] LABS: GLUCOSE COMMENT 1 Received Meds; GLUCOSE,POINT OF CARE 250 MG/DL (70-110)
[2016-05-15 11:46] LABS: GLUCOSE COMMENT 1 Received Meds; GLUCOSE,POINT OF CARE 256 MG/DL (70-110)
[2016-05-15 11:51] LABS: GLUCOSE,POINT OF CARE 206 MG/DL (70-110)
[2016-05-15 15:25] VITALS: BP 135/72
[2016-05-15 19:34] VITALS: BP 135/73
[2016-05-15 19:41] LABS: GLUCOSE COMMENT 1 Received Meds; GLUCOSE,POINT OF CARE 214 MG/DL (70-110)
[2016-05-15 19:41] LABS: GLUCOSE COMMENT 1 Received Meds; GLUCOSE,POINT OF CARE 233 MG/DL (70-110)
[2016-05-15 19:41] LABS: GLUCOSE COMMENT 1 Received Meds; GLUCOSE,POINT OF CARE 174 MG/DL (70-110)
[2016-05-15 19:41] LABS: GLUCOSE COMMENT 1 Received Meds; GLUCOSE,POINT OF CARE 233 MG/DL (70-110)
[2016-05-15] MEDS: ATORVASTATIN CALCIUM 20 MG TABLET PO SCH (20:32)
[2016-05-15] MEDS: POLYETHYLENE GLYCOL 3350 17 GM PACKET PO SCH (20:32)
[2016-05-15 23:32] VITALS: BP 140/90
[2016-05-16 04:28] VITALS: BP 113/60
[2016-05-16] MEDS: ALBUTEROL SULFATE 2.5 MG/0.5 ML NEB SOLUTION NEB PRN (05:17)
[2016-05-16] MEDS: IPRATROPIUM BROMIDE 0.5 MG/2.5 ML NEB SOLUTION NEB PRN (05:17)
[2016-05-16] MEDS: INSULIN ASPART 100 UNITS/ML SQ PRN ×4 (06:36→20:49)
[2016-05-16 06:39] LABS: BASOPHILS % (AUTO) 0.1 % (0.0-2.0); EOSINOPHILS % (AUTO) 0.1 % (1.0-6.0); HEMATOCRIT 35.8 % (36-46); HEMOGLOBIN 11.6 g/dL (12.0-16.0); LYMPHOCYTES # (AUTO) 0.9 K/uL (1.0-4.8); LYMPHOCYTES % (AUTO) 5.8 % (22.0-44.0); MEAN CORPUSCULAR HEMOGLOBIN 30.9 pg (26.0-34.0); MEAN CORPUSCULAR HGB CONC 32.3 G/dL (31.0-37.0); MEAN CORPUSCULAR VOLUME 96 fL (80-100); MONOCYTES # (AUTO) 0.4 K/uL (0.1-1.0); MONOCYTES % (AUTO) 2.5 % (2.0-9.0); NEUTROPHILS # (AUTO) 14.6 K/uL (1.8-7.7); PLATELET COUNT (AUTO) 147 K/uL (150-450); RED BLOOD CELL COUNT(AUTO) 3.74 MIL/uL (4.00-5.20); RED CELL DISTRIBUTION WIDTH 16.4 % (11.5-14.5); WHITE BLOOD COUNT (AUTO) 15.9 K/uL (4.5-11.0)
[2016-05-16 06:51] LABS: NEUTROPHILS % (AUTO) 91.5 % (40.0-70.0)
[2016-05-16 07:37] LABS: ALANINE AMINOTRANSFERASE 26 U/L (12-78); ALBUMIN 2.6 g/dL (3.4-5.0); ANION GAP 7 mmol/L (8-16); ASPARTATE AMINOTRANSFERASE 16 U/L (15-37); BILIRUBIN,TOTAL 0.4 mg/dL (0.1-1.0); CARBON DIOXIDE 32 mmol/L (22-29); CHLORIDE 98 mmol/L (98-107); CREATININE 0.85 mg/dL (0.60-1.30); GLOMERULAR FILTR. RATE CALC > 60 mL/min (>60); POTASSIUM 3.8 mmol/L (3.5-5.1); SODIUM SERUM 137 mmol/L (136-145); TOTAL PROTEIN, SERUM 5.3 g/dL (6.4-8.2); UREA NITROGEN, BLOOD 33 mg/dL (7-18)
[2016-05-16 08:00] VITALS: BP 138/60
[2016-05-16] MEDS: GLIMEPIRIDE 2 MG TABLET PO SCH ×2 (08:24→17:32)
[2016-05-16] MEDS: FUROSEMIDE 40 MG TABLET PO SCH ×2 (08:24→20:26)
[2016-05-16] MEDS: CHOLECALCIFEROL (VIT D3) 2,000 UNITS TABLET PO SCH (08:24)
[2016-05-16] MEDS: METOPROLOL TARTRATE 25 MG TABLET PO SCH ×2 (08:24→20:27)
[2016-05-16] MEDS: INSULIN GLARGINE,HUM.REC.ANLOG 100 UNITS/ML SQ SCH (08:24)
[2016-05-16] MEDS: DOCUSATE SODIUM 250 MG CAPSULE PO SCH ×3 (08:24→20:28)
[2016-05-16] MEDS: LISINOPRIL 5 MG TABLET PO SCH (08:24)
[2016-05-16] MEDS: APIXABAN 2.5 MG TABLET PO SCH (08:24)
[2016-05-16] MEDS: OXYGEN THERAPY IH SCH ×2 (08:25→20:05)
[2016-05-16] MEDS: AMIODARONE HCL 200 MG TABLET PO SCH ×2 (08:25→20:27)
[2016-05-16] MEDS: BUDESONIDE/FORMOTEROL FUMARATE 160-4.5 MCG/PUFF 6.9 GM INHALER IH SCH ×2 (08:25→20:41)
[2016-05-16] MEDS: MethylPREDNISolone SOD SUCC 40 MG/ML VIAL IVP SCH ×2 (09:12→20:26)
[2016-05-16] MEDS: PANTOPRAZOLE SODIUM 40 MG/VIAL IVP SCH ×2 (09:12→20:26)
[2016-05-16] MEDS: NITROGLYCERIN 2% (1 GM=INCH) PACKET TP SCH ×3 (10:05→23:20)
[2016-05-16 12:08] VITALS: BP 144/67
[2016-05-16 16:38] VITALS: BP 145/71
[2016-05-16 19:23] VITALS: BP 129/71
[2016-05-16] MEDS: ATORVASTATIN CALCIUM 20 MG TABLET PO SCH (20:26)
[2016-05-16] MEDS: POLYETHYLENE GLYCOL 3350 17 GM PACKET PO SCH (20:27)
[2016-05-16 20:42] LABS: GLUCOSE COMMENT 1 Received Meds; GLUCOSE,POINT OF CARE 350 MG/DL (70-110)
[2016-05-16 20:42] LABS: GLUCOSE COMMENT 1 Received Meds; GLUCOSE,POINT OF CARE 277 MG/DL (70-110)
[2016-05-16 22:56] VITALS: BP 141/74
[2016-05-17 03:49] VITALS: BP 135/89
[2016-05-17] MEDS: INSULIN ASPART 100 UNITS/ML SQ PRN ×3 (06:10→17:10)
[2016-05-17 06:21] LABS: GLUCOSE,POINT OF CARE 348 MG/DL (70-110)
[2016-05-17 06:57] LABS: EOSINOPHILS % (AUTO) 0 % (1.0-6.0); HEMATOCRIT 33.9 % (36-46); HEMOGLOBIN 11.1 g/dL (12.0-16.0); LYMPHOCYTES # (AUTO) 0.6 K/uL (1.0-4.8); LYMPHOCYTES % (AUTO) 3.8 % (22.0-44.0); MEAN CORPUSCULAR HEMOGLOBIN 31.1 pg (26.0-34.0); MEAN CORPUSCULAR HGB CONC 32.7 G/dL (31.0-37.0); MEAN CORPUSCULAR VOLUME 95 fL (80-100); MONOCYTES # (AUTO) 0.4 K/uL (0.1-1.0); MONOCYTES % (AUTO) 2.7 % (2.0-9.0); NEUTROPHILS # (AUTO) 14.5 K/uL (1.8-7.7); PLATELET COUNT (AUTO) 147 K/uL (150-450); RED BLOOD CELL COUNT(AUTO) 3.56 MIL/uL (4.00-5.20); RED CELL DISTRIBUTION WIDTH 16.9 % (11.5-14.5); WHITE BLOOD COUNT (AUTO) 15.5 K/uL (4.5-11.0)
[2016-05-17 07:02] LABS: NEUTROPHILS % (AUTO) 93.5 % (40.0-70.0)
[2016-05-17 07:25] LABS: ALANINE AMINOTRANSFERASE 24 U/L (12-78); ALBUMIN 2.4 g/dL (3.4-5.0); ANION GAP 5 mmol/L (8-16); ASPARTATE AMINOTRANSFERASE 13 U/L (15-37); BILIRUBIN,TOTAL 0.3 mg/dL (0.1-1.0); CALCIUM, TOTAL 7.6 mg/dL (8.8-10.5); CARBON DIOXIDE 34 mmol/L (22-29); CHLORIDE 97 mmol/L (98-107); GLOMERULAR FILTR. RATE CALC > 60 mL/min (>60); POTASSIUM 3.3 mmol/L (3.5-5.1); SODIUM SERUM 136 mmol/L (136-145); UREA NITROGEN, BLOOD 24 mg/dL (7-18)
[2016-05-17 07:57] VITALS: BP 129/84
[2016-05-17] MEDS: CHOLECALCIFEROL (VIT D3) 2,000 UNITS TABLET PO SCH (08:15)
[2016-05-17] MEDS: METOPROLOL TARTRATE 25 MG TABLET PO SCH ×2 (08:15→20:52)
[2016-05-17] MEDS: GLIMEPIRIDE 2 MG TABLET PO SCH ×2 (08:15→17:07)
[2016-05-17] MEDS: FUROSEMIDE 40 MG TABLET PO SCH ×2 (08:15→20:52)
[2016-05-17] MEDS: LISINOPRIL 5 MG TABLET PO SCH (08:15)
[2016-05-17] MEDS: NITROGLYCERIN 2% (1 GM=INCH) PACKET TP SCH ×2 (08:16→17:07)
[2016-05-17] MEDS: DOCUSATE SODIUM 250 MG CAPSULE PO SCH ×3 (08:16→20:53)
[2016-05-17] MEDS: AMIODARONE HCL 200 MG TABLET PO SCH ×2 (08:16→20:53)
[2016-05-17] MEDS: BUDESONIDE/FORMOTEROL FUMARATE 160-4.5 MCG/PUFF 6.9 GM INHALER IH SCH ×2 (08:16→20:53)
[2016-05-17] MEDS: POTASSIUM CHLORIDE 20 MEQ ER TABLET PO PRN (08:16)
[2016-05-17] MEDS: OXYGEN THERAPY IH SCH ×2 (08:16→20:54)
[2016-05-17] MEDS: INSULIN GLARGINE,HUM.REC.ANLOG 100 UNITS/ML SQ SCH (08:18)
[2016-05-17] MEDS ORDERED: MAGNESIUM SULFATE 2 GM in DEXTROSE 5%-WATER 50 ML IV PRN (08:45)
[2016-05-17] MEDS ORDERED: MAGNESIUM SULFATE 4 GM/WATER 100 ML IV PRN (08:45)
[2016-05-17] MEDS: MAGNESIUM OXIDE 400 MG TABLET PO PRN ×3 (11:48→21:33)
[2016-05-17] MEDS: PANTOPRAZOLE SODIUM 40 MG/VIAL IVP SCH ×2 (11:51→20:52)
[2016-05-17 12:09] VITALS: BP 101/63
[2016-05-17 15:26] LABS: GLUCOSE COMMENT 1 Received Meds; GLUCOSE,POINT OF CARE 236 MG/DL (70-110)
[2016-05-17 16:02] VITALS: BP 112/75
[2016-05-17 19:10] VITALS: BP 112/54
[2016-05-17] MEDS: ATORVASTATIN CALCIUM 20 MG TABLET PO SCH (20:52)
[2016-05-17] MEDS: POLYETHYLENE GLYCOL 3350 17 GM PACKET PO SCH (20:53)
[2016-05-17 23:23] VITALS: BP 115/59
[2016-05-18] VITALS (16 sets, daily range): BP systolic 102–130; BP diastolic 54–71
[2016-05-18 00:07] LABS: GLUCOSE,POINT OF CARE 96 MG/DL (70-110)
[2016-05-18 00:07] LABS: GLUCOSE COMMENT 1 Received Meds; GLUCOSE,POINT OF CARE 154 MG/DL (70-110)
[2016-05-18 06:40] LABS: EOSINOPHILS % (AUTO) 0.8 % (1.0-6.0); HEMATOCRIT 37.9 % (36-46); HEMOGLOBIN 12.4 g/dL (12.0-16.0); LYMPHOCYTES # (AUTO) 1.4 K/uL (1.0-4.8); LYMPHOCYTES % (AUTO) 9.4 % (22.0-44.0); MEAN CORPUSCULAR HEMOGLOBIN 31.2 pg (26.0-34.0); MEAN CORPUSCULAR HGB CONC 32.8 G/dL (31.0-37.0); MEAN CORPUSCULAR VOLUME 95 fL (80-100); MONOCYTES # (AUTO) 0.5 K/uL (0.1-1.0); MONOCYTES % (AUTO) 3.2 % (2.0-9.0); NEUTROPHILS # (AUTO) 12.8 K/uL (1.8-7.7); PLATELET COUNT (AUTO) 154 K/uL (150-450); RED BLOOD CELL COUNT(AUTO) 3.99 MIL/uL (4.00-5.20); RED CELL DISTRIBUTION WIDTH 17.2 % (11.5-14.5); WHITE BLOOD COUNT (AUTO) 14.8 K/uL (4.5-11.0)
[2016-05-18 06:51] LABS: NEUTROPHILS % (AUTO) 86.6 % (40.0-70.0)
[2016-05-18 06:55] LABS: ALANINE AMINOTRANSFERASE 24 U/L (12-78); ALBUMIN 2.5 g/dL (3.4-5.0); ANION GAP 2 mmol/L (8-16); ASPARTATE AMINOTRANSFERASE 24 U/L (15-37); BILIRUBIN,TOTAL 0.4 mg/dL (0.1-1.0); CALCIUM, TOTAL 8.1 mg/dL (8.8-10.5); CARBON DIOXIDE 37 mmol/L (22-29); CHLORIDE 99 mmol/L (98-107); CREATININE 0.83 mg/dL (0.60-1.30); GLOMERULAR FILTR. RATE CALC > 60 mL/min (>60); POTASSIUM 3.7 mmol/L (3.5-5.1); SODIUM SERUM 138 mmol/L (136-145); TOTAL PROTEIN, SERUM 5.1 g/dL (6.4-8.2); UREA NITROGEN, BLOOD 26 mg/dL (7-18)
[2016-05-18] MEDS: GLIMEPIRIDE 2 MG TABLET PO SCH ×2 (08:00→17:23)
[2016-05-18 08:27] LABS: RBC MORPHOLOGY COMMENT ABNORMAL RBC MORPH
[2016-05-18] MEDS: PANTOPRAZOLE SODIUM 40 MG/VIAL IVP SCH ×2 (08:45→20:32)
[2016-05-18] MEDS: NITROGLYCERIN 2% (1 GM=INCH) PACKET TP SCH ×3 (08:56→17:23)
[2016-05-18] MEDS: OXYGEN THERAPY IH SCH ×2 (08:57→20:28)
[2016-05-18] MEDS: BUDESONIDE/FORMOTEROL FUMARATE 160-4.5 MCG/PUFF 6.9 GM INHALER IH SCH ×2 (08:58→20:29)
[2016-05-18] MEDS: DOCUSATE SODIUM 250 MG CAPSULE PO SCH ×3 (09:00→20:29)
[2016-05-18] MEDS: FUROSEMIDE 40 MG TABLET PO SCH ×2 (09:00→20:29)
[2016-05-18 11:15] LABS: INR 1.1 (0.9-1.1); PROTHROMBIN TIME 11.3 SEC (9.4-11.6)
[2016-05-18 11:35] LABS: TOTAL PROTEIN,BODY FLUID,REF 0.9 g/dL
[2016-05-18] MEDS ORDERED: LIDOCAINE HCL/PF 1% 30 ML VIAL ONE ×2 (12:17→12:22)
[2016-05-18] MEDS ORDERED: IOHEXOL 300 MG/ML 150 ML VIAL ONE (12:17)
[2016-05-18] MEDS ORDERED: SODIUM BICARBONATE 50 MEQ/50 ML VIAL ONE (12:17)
[2016-05-18] MEDS ORDERED: HEPARIN SODIUM 1000 UNITS/NS 1,000 ML ONE (12:17)
[2016-05-18] MEDS ORDERED: MIDAZOLAM HCL 2 MG/2 ML VIAL ONE (12:35)
[2016-05-18] MEDS ORDERED: FentaNYL CITRATE-PF 100 MCG/2 ML VIAL ONE (12:35)
[2016-05-18] MEDS ORDERED: HEPARIN SODIUM 1000 UNITS/NS 1,000 ML IARTER ONE (12:41)
[2016-05-18] MEDS ORDERED: SODIUM CHLORIDE 0.9% 500 ML IV ONE (12:41)
[2016-05-18] MEDS ORDERED: LIDOCAINE 1% 30 ML/SOD BICARB 8.4% 4 ML SQ ONE (12:45)
[2016-05-18] MEDS ORDERED: MIDAZOLAM HCL 2 MG/2 ML VIAL IVP ONE (12:45)
[2016-05-18] MEDS ORDERED: FentaNYL CITRATE-PF 100 MCG/2 ML VIAL IVP ONE (12:45)
[2016-05-18] MEDS ORDERED: IOHEXOL 300 MG/ML 150 ML VIAL IARTER ONE (12:45)
[2016-05-18] MEDS: AMIODARONE HCL 200 MG TABLET PO SCH ×2 (14:26→20:29)
[2016-05-18] MEDS: CHOLECALCIFEROL (VIT D3) 2,000 UNITS TABLET PO SCH (14:26)
[2016-05-18] MEDS: METOPROLOL TARTRATE 25 MG TABLET PO SCH ×2 (14:26→20:29)
[2016-05-18] MEDS: LISINOPRIL 5 MG TABLET PO SCH (14:26)
[2016-05-18 14:46] LABS: GLUCOSE COMMENT 1 Received Meds; GLUCOSE,POINT OF CARE 151 MG/DL (70-110)
[2016-05-18 14:46] LABS: GLUCOSE,POINT OF CARE 257 MG/DL (70-110)
[2016-05-18 14:46] LABS: GLUCOSE COMMENT 1 Received Meds; GLUCOSE,POINT OF CARE 232 MG/DL (70-110)
[2016-05-18 14:56] LABS: GLUCOSE COMMENT 1 FASTING; GLUCOSE,POINT OF CARE 71 MG/DL (70-110)
[2016-05-18 14:57] LABS: GLUCOSE COMMENT 1 Doctor Notified; GLUCOSE,POINT OF CARE 74 MG/DL (70-110)
[2016-05-18 15:01] LABS: GLUCOSE COMMENT 1 Received Meds; GLUCOSE,POINT OF CARE 185 MG/DL (70-110)
[2016-05-18 15:01] LABS: GLUCOSE COMMENT 1 Received Meds; GLUCOSE,POINT OF CARE 244 MG/DL (70-110)
[2016-05-18 15:01] LABS: GLUCOSE COMMENT 1 Received Meds; GLUCOSE,POINT OF CARE 237 MG/DL (70-110)
[2016-05-18 15:02] LABS: GLUCOSE,POINT OF CARE 277 MG/DL (70-110)
[2016-05-18] MEDS: INSULIN ASPART 100 UNITS/ML SQ PRN (17:27)
[2016-05-18] MEDS: INSULIN GLARGINE,HUM.REC.ANLOG 100 UNITS/ML SQ SCH (17:28)
[2016-05-18 19:36] LABS: GLUCOSE COMMENT 1 Received Meds; GLUCOSE,POINT OF CARE 189 MG/DL (70-110)
[2016-05-18] MEDS: POLYETHYLENE GLYCOL 3350 17 GM PACKET PO SCH (20:29)
[2016-05-18] MEDS: ATORVASTATIN CALCIUM 20 MG TABLET PO SCH (20:29)
[2016-05-18] MEDS: APIXABAN 2.5 MG TABLET PO SCH (20:29)
[2016-05-19] VITALS (9 sets, daily range): BP systolic 108–117; BP diastolic 54–74
[2016-05-19 00:42] LABS: GLUCOSE COMMENT 1 Received Meds; GLUCOSE,POINT OF CARE 180 MG/DL (70-110)
[2016-05-19] MEDS: NITROGLYCERIN 2% (1 GM=INCH) PACKET TP SCH ×3 (00:48→15:50)
[2016-05-19] MEDS: INSULIN ASPART 100 UNITS/ML SQ PRN ×4 (06:33→20:55)
[2016-05-19] MEDS: OXYGEN THERAPY IH SCH (07:48)
[2016-05-19 07:56] LABS: ALANINE AMINOTRANSFERASE 19 U/L (12-78); ALBUMIN 2.2 g/dL (3.4-5.0); ANION GAP 1 mmol/L (8-16); ASPARTATE AMINOTRANSFERASE 16 U/L (15-37); BILIRUBIN,TOTAL 0.4 mg/dL (0.1-1.0); CALCIUM, TOTAL 7.6 mg/dL (8.8-10.5); CARBON DIOXIDE 35 mmol/L (22-29); CHLORIDE 98 mmol/L (98-107); CREATININE 0.82 mg/dL (0.60-1.30); GLOMERULAR FILTR. RATE CALC > 60 mL/min (>60); POTASSIUM 3.3 mmol/L (3.5-5.1); SODIUM SERUM 134 mmol/L (136-145); TOTAL PROTEIN, SERUM 4.9 g/dL (6.4-8.2); UREA NITROGEN, BLOOD 28 mg/dL (7-18)
[2016-05-19] MEDS: METOPROLOL TARTRATE 25 MG TABLET PO SCH ×2 (08:51→21:02)
[2016-05-19] MEDS: PANTOPRAZOLE SODIUM 40 MG/VIAL IVP SCH ×2 (08:51→21:03)
[2016-05-19] MEDS: CHOLECALCIFEROL (VIT D3) 2,000 UNITS TABLET PO SCH (08:51)
[2016-05-19] MEDS: AMIODARONE HCL 200 MG TABLET PO SCH ×2 (08:51→21:02)
[2016-05-19] MEDS: APIXABAN 2.5 MG TABLET PO SCH ×2 (08:51→21:02)
[2016-05-19] MEDS: GLIMEPIRIDE 2 MG TABLET PO SCH ×2 (08:51→18:19)
[2016-05-19] MEDS: DOCUSATE SODIUM 250 MG CAPSULE PO SCH ×3 (08:51→21:03)
[2016-05-19] MEDS: FUROSEMIDE 40 MG TABLET PO SCH ×2 (08:51→21:02)
[2016-05-19] MEDS: LISINOPRIL 5 MG TABLET PO SCH (08:51)
[2016-05-19] MEDS: INSULIN GLARGINE,HUM.REC.ANLOG 100 UNITS/ML SQ SCH (09:00)
[2016-05-19] MEDS: BUDESONIDE/FORMOTEROL FUMARATE 160-4.5 MCG/PUFF 6.9 GM INHALER IH SCH ×2 (09:00→21:02)
[2016-05-19 11:38] LABS: EOSINOPHILS % (AUTO) 0.5 % (1.0-6.0); HEMATOCRIT 35.9 % (36-46); HEMOGLOBIN 11.6 g/dL (12.0-16.0); LYMPHOCYTES # (AUTO) 0.9 K/uL (1.0-4.8); LYMPHOCYTES % (AUTO) 8.3 % (22.0-44.0); MEAN CORPUSCULAR HEMOGLOBIN 31.2 pg (26.0-34.0); MEAN CORPUSCULAR HGB CONC 32.4 G/dL (31.0-37.0); MEAN CORPUSCULAR VOLUME 96 fL (80-100); MONOCYTES # (AUTO) 0.4 K/uL (0.1-1.0); MONOCYTES % (AUTO) 3.7 % (2.0-9.0); NEUTROPHILS # (AUTO) 9.9 K/uL (1.8-7.7); PLATELET COUNT (AUTO) 129 K/uL (150-450); RED BLOOD CELL COUNT(AUTO) 3.73 MIL/uL (4.00-5.20); RED CELL DISTRIBUTION WIDTH 17.8 % (11.5-14.5); WHITE BLOOD COUNT (AUTO) 11.3 K/uL (4.5-11.0)
[2016-05-19 11:39] LABS: NEUTROPHILS % (AUTO) 87.5 % (40.0-70.0)
[2016-05-19 11:54] LABS: RBC MORPHOLOGY COMMENT ABNORMAL RBC MORPH
[2016-05-19] MEDS: POTASSIUM CHLORIDE 20 MEQ ER TABLET PO PRN (15:51)
[2016-05-19] MEDS: POLYETHYLENE GLYCOL 3350 17 GM PACKET PO SCH (21:02)
[2016-05-19] MEDS: ATORVASTATIN CALCIUM 20 MG TABLET PO SCH (21:02)
[2016-05-20] MEDS: NITROGLYCERIN 2% (1 GM=INCH) PACKET TP SCH ×2 (00:54→08:30)
[2016-05-20 04:24] VITALS: BP 108/62
[2016-05-20 06:20] LABS: ALANINE AMINOTRANSFERASE 19 U/L (12-78); ALBUMIN 2.1 g/dL (3.4-5.0); ANION GAP 4 mmol/L (8-16); ASPARTATE AMINOTRANSFERASE 15 U/L (15-37); BILIRUBIN,TOTAL 0.3 mg/dL (0.1-1.0); CALCIUM, TOTAL 7.7 mg/dL (8.8-10.5); CARBON DIOXIDE 34 mmol/L (22-29); CHLORIDE 99 mmol/L (98-107); CREATININE 0.85 mg/dL (0.60-1.30); GLOMERULAR FILTR. RATE CALC > 60 mL/min (>60); POTASSIUM 3.7 mmol/L (3.5-5.1); SODIUM SERUM 137 mmol/L (136-145); TOTAL PROTEIN, SERUM 4.7 g/dL (6.4-8.2); UREA NITROGEN, BLOOD 23 mg/dL (7-18)
[2016-05-20 06:41] LABS: EOSINOPHILS % (AUTO) 1.8 % (1.0-6.0); HEMATOCRIT 34.1 % (36-46); HEMOGLOBIN 11.1 g/dL (12.0-16.0); LYMPHOCYTES % (AUTO) 11.6 % (22.0-44.0); MEAN CORPUSCULAR HEMOGLOBIN 31.5 pg (26.0-34.0); MEAN CORPUSCULAR HGB CONC 32.5 G/dL (31.0-37.0); MEAN CORPUSCULAR VOLUME 97 fL (80-100); MONOCYTES # (AUTO) 0.4 K/uL (0.1-1.0); MONOCYTES % (AUTO) 4.6 % (2.0-9.0); NEUTROPHILS # (AUTO) 7.2 K/uL (1.8-7.7); PLATELET COUNT (AUTO) 124 K/uL (150-450); RED BLOOD CELL COUNT(AUTO) 3.53 MIL/uL (4.00-5.20); RED CELL DISTRIBUTION WIDTH 17.6 % (11.5-14.5); WHITE BLOOD COUNT (AUTO) 8.7 K/uL (4.5-11.0)
[2016-05-20 06:59] VITALS: BP 108/57
[2016-05-20] MEDS: METOPROLOL TARTRATE 25 MG TABLET PO SCH (08:25)
[2016-05-20] MEDS: GLIMEPIRIDE 2 MG TABLET PO SCH (08:25)
[2016-05-20] MEDS: APIXABAN 2.5 MG TABLET PO SCH (08:25)
[2016-05-20] MEDS: CHOLECALCIFEROL (VIT D3) 2,000 UNITS TABLET PO SCH (08:25)
[2016-05-20] MEDS: LISINOPRIL 5 MG TABLET PO SCH (08:25)
[2016-05-20] MEDS: AMIODARONE HCL 200 MG TABLET PO SCH (08:25)
[2016-05-20] MEDS: FUROSEMIDE 40 MG TABLET PO SCH (08:25)
[2016-05-20] MEDS: PANTOPRAZOLE SODIUM 40 MG/VIAL IVP SCH (08:26)
[2016-05-20] MEDS: DOCUSATE SODIUM 250 MG CAPSULE PO SCH (08:26)
[2016-05-20] MEDS: INSULIN GLARGINE,HUM.REC.ANLOG 100 UNITS/ML SQ SCH (08:38)
[2016-05-20] MEDS: BUDESONIDE/FORMOTEROL FUMARATE 160-4.5 MCG/PUFF 6.9 GM INHALER IH SCH (09:00)
[2016-05-20 10:51] VITALS: BP 98/56
[2016-05-20] MEDS: INSULIN ASPART 100 UNITS/ML SQ PRN (11:44)
[2016-05-20 12:07] LABS: GLUCOSE,POINT OF CARE 200 MG/DL (70-110)
[2016-05-23 06:42] LABS: GLUCOSE COMMENT 1 Received Meds; GLUCOSE,POINT OF CARE 157 MG/DL (70-110)
[2016-05-23 06:42] LABS: GLUCOSE COMMENT 1 Received Meds; GLUCOSE,POINT OF CARE 209 MG/DL (70-110)
[2016-05-23 06:42] LABS: GLUCOSE,POINT OF CARE 215 MG/DL (70-110)
[2016-05-23 08:37] LABS: GLUCOSE,POINT OF CARE 156 MG/DL (70-110)
[2016-05-23 08:37] LABS: GLUCOSE COMMENT 1 Received Meds; GLUCOSE,POINT OF CARE 174 MG/DL (70-110)
[2016-05-23 08:37] LABS: GLUCOSE COMMENT 1 Received Meds; GLUCOSE,POINT OF CARE 193 MG/DL (70-110)
[2016-05-23 08:37] LABS: GLUCOSE COMMENT 1 Received Meds; GLUCOSE,POINT OF CARE 217 MG/DL (70-110)
== END 2016-05-20 14:11 | DRG 242 ==
LOC: EMS 00:18 → 5S 04:27 → ICU 05-09 17:40 → 5S 05-10 16:45
PROVIDERS: ADMIT Internal Medicine; ATTEND Internal Medicine
PROC: 5A09357 Assistance with Respiratory Ventilation, Less than 24 Consecutive Hours, Continuous Positive Airway Pressure (ICD-10-PCS; 2016-04-27)
PROC: 0W993ZZ Drainage of Right Pleural Cavity, Percutaneous Approach (ICD-10-PCS; 2016-04-28)
PROC: 0DJ08ZZ Inspection of Upper Intestinal Tract, Via Natural or Artificial Opening Endoscopic (ICD-10-PCS; 2016-05-01)
PROC: 0W9B3ZZ Drainage of Left Pleural Cavity, Percutaneous Approach (ICD-10-PCS; 2016-05-03)
PROC: 0JH606Z Insertion of Pacemaker, Dual Chamber into Chest Subcutaneous Tissue and Fascia, Open Approach (ICD-10-PCS; principal; 2016-05-07)
PROC: 02H63JZ Insertion of Pacemaker Lead into Right Atrium, Percutaneous Approach (ICD-10-PCS; 2016-05-07)
PROC: 02HK3JZ Insertion of Pacemaker Lead into Right Ventricle, Percutaneous Approach (ICD-10-PCS; 2016-05-07)
PROC: 4A023N8 Measurement of Cardiac Sampling and Pressure, Bilateral, Percutaneous Approach (ICD-10-PCS; 2016-05-18)
PROC: B2111ZZ Fluoroscopy of Multiple Coronary Arteries using Low Osmolar Contrast (ICD-10-PCS; 2016-05-18)
PROC: B2151ZZ Fluoroscopy of Left Heart using Low Osmolar Contrast (ICD-10-PCS; 2016-05-18)
DX: I11.0 Hypertensive heart disease with heart failure (principal); R65.11 Systemic inflammatory response syndrome (SIRS) of non-infectious origin with acute organ dysfunction; J96.01 Acute respiratory failure with hypoxia; B18.1 Chronic viral hepatitis B without delta-agent; B37.81 Candidal esophagitis; J44.0 Chronic obstructive pulmonary disease with (acute) lower respiratory infection; J90 Pleural effusion, not elsewhere classified; I50.31 Acute diastolic (congestive) heart failure; I48.0 Paroxysmal atrial fibrillation; E11.9 Type 2 diabetes mellitus without complications; E78.5 Hyperlipidemia, unspecified; J45.909 Unspecified asthma, uncomplicated; I08.0 Rheumatic disorders of both mitral and aortic valves; D64.9 Anemia, unspecified; E04.1 Nontoxic single thyroid nodule; E78.00 Pure hypercholesterolemia, unspecified; I09.9 Rheumatic heart disease, unspecified; I25.10 Atherosclerotic heart disease of native coronary artery without angina pectoris; I49.5 Sick sinus syndrome; K29.00 Acute gastritis without bleeding; T38.0X5A Adverse effect of glucocorticoids and synthetic analogues, initial encounter; D72.829 Elevated white blood cell count, unspecified; J44.9 Chronic obstructive pulmonary disease, unspecified; T45.515A Adverse effect of anticoagulants, initial encounter; K21.0 Gastro-esophageal reflux disease with esophagitis; R53.81 Other malaise; K29.80 Duodenitis without bleeding; Z79.4 Long term (current) use of insulin; Z79.899 Other long term (current) drug therapy; Z98.890 Other specified postprocedural states; Z98.42 Cataract extraction status, left eye; Z91.19 Patient's noncompliance with other medical treatment and regimen; Z79.01 Long term (current) use of anticoagulants; Z86.69 Personal history of other diseases of the nervous system and sense organs; Z87.01 Personal history of pneumonia (recurrent); Z87.440 Personal history of urinary (tract) infections; Z80.0 Family history of malignant neoplasm of digestive organs; Z82.49 Family history of ischemic heart disease and other diseases of the circulatory system; Y92.238 Other place in hospital as the place of occurrence of the external cause
CPT/HCPCS: 32555; 33208; 36005; 71020; 71250; 76000; 76536; 76942; 78452; 82271; 82465; 82805; 82945; 82962; 83036; 83615; 83735; 83986; 84132; 84145; 84155; 84157; 84443; 86706; 86707; 86738; 87015; 87040; 87070; 87101; 87205; 87340; 87350; 87449; 87517; 87804; 87899; 88108; 88305; 88342; 89051; 93005; 93017; 93306; 93308; 93460; 94640; 94660; 97110; 97116; 97163; 97530; A9500; C9113; J0282; J0360; J0456; J0690; J0696; J1160; J1644; J1815; J1940; J2250; J2405; J2704; J2785; J2920; J2930; J3010; J3480; J3490; J7030; J7040; J7050; J7060; Q9967

== ENCOUNTER → 2017-10-31 | Outpatient (CLI) | payer MEDICARE, OTHER ==
[~2017-10-31] VITALS: Ht 162.6 cm; Wt 56.0 kg
[~2017-10-31] MED LIST changes: -CEPH500 PO; -DILT120C3 PO; -DSS100 PO; -LOVA20 PO; -MECL-129 PO; -METF500T4 PO; +METO25XL PO; +OMEP20 PO; +SITA1TBM4 PO
[2017-10-31 13:28] VITALS: BP 108/72
== END | disposition home or self-care (01) ==
LOC: SRCNTR 13:24
PROVIDERS: ATTEND Internal Medicine Critical Care Medicine
DX: J90 Pleural effusion, not elsewhere classified (principal); J44.1 Chronic obstructive pulmonary disease with (acute) exacerbation; I48.91 Unspecified atrial fibrillation; E04.1 Nontoxic single thyroid nodule; I35.0 Nonrheumatic aortic (valve) stenosis; E11.9 Type 2 diabetes mellitus without complications; E78.5 Hyperlipidemia, unspecified; I10 Essential (primary) hypertension; E05.90 Thyrotoxicosis, unspecified without thyrotoxic crisis or storm
CPT/HCPCS: G0463